=== PATIENT | male | born 1935 | race Caucasian/White ===

== ENCOUNTER 2023-12-02 18:44 | Emergency (ER) | payer MEDICARE, SELFPAY ==
[2023-12-02] VITALS (10 sets, daily range): BP systolic 101–135; BP diastolic 55–67; PULSE 66–94; RESP 19–26; TEMP 36.7; O2SAT 92–96; BMI 27.2
--- NOTE | 2023-12-02 18:49 | XRR_ITS ---
PROCEDURE INFORMATION: Exam: XR Chest Exam date and time: 12/02/2023 8:00 PM Age: 88 years old Clinical indication: Dyspnea; Additional info: Shortness of breath TECHNIQUE: Imaging protocol: Radiologic exam of the chest. Views: 1 view. COMPARISON: No relevant prior studies available. FINDINGS: Lungs: No focal consolidation. Mid to lower left lung hazy opacities compatible with atelectasis or developing infection in the proper clinical setting. Pleural spaces: No evidence of pneumothorax. No evidence of pleural effusion. Heart/Mediastinum: Cardiomediastinal silhouette is within normal limits. There is colonic interposition in the right upper quadrant. There appears to be gaseous distension of the stomach. Bones/joints: No evidence of acute osseous abnormality. XR/XR chest 1V portable [id number] IMPRESSION: 1. Mid to lower left lung hazy opacities compatible with atelectasis or developing infection in the proper clinical setting.
--- NOTE | 2023-12-02 18:49 | ECG_ITS ---
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 Measurements Intervals [place] Rate: 89 P: 63 [place]: 158 QRS: 93 QRSD: 133 T: 57 QT: 411 QTc: 503 Interpretive Statements SINUS RHYTHM RIGHT BUNDLE BRANCH BLOCK [120+ ms QRS DURATION, UPRIGHT V1, 40+ ms S IN I/aVL/V4/V5/V6] No previous ECG available for comparison Electronically Signed On 12-03-2023 00:58:00 CDT by Cher Leal M.D. [email or web address]
[2023-12-02 19:04] LABS: Basophils % 0.2 %; Eosinophils # 0.3 10^3/uL (0.0-0.8); Eosinophils % 7.7 %; Hematocrit 31.1 % (37-53); Lymphocytes # 0.3 10^3/uL (0.8-4.8); Mean Corpuscular HGB Conc 33.1 g/dL (30-55); Mean Corpuscular Hemoglobin 34.6 pg (27-33); Mean Corpuscular Volume 104.4 fl (82-101); Mean Platelet Volume 9.5 fL (7.4-10.4); Monocytes # 0.5 10^3/uL (0.2-0.9); Monocytes % 10.1 %; Neutrophils # 3.31 10^3/uL (1.8-7.7); Neutrophils % 74.5 %; Nucleated Red Blood Cells % 0 %; Platelet Count 176 10^3/cmm (157-399); Red Blood Count 2.98 10^6/uL (3.85-5.65); Red Cell Distribution Width 16.1 % (12.1-15.1); White Blood Count 4.44 10^3/uL (3.29-11.43)
--- NOTE | 2023-12-02 19:05 | ED_ITS ---
HPI - SOB/Dyspnea 2 General: Chief Complaint: Shortness of Breath/Dyspnea Stated Complaint: AMS Time Seen by Provider: 12/02/23 18:46 History of Present Illness: HPI Narrative: 88-year-old man who presents to the [facility] with decreased responsiveness. Apparently has some dementia but normally can speak and knows his name. Today he is less responsive. He does tell me when he arrives in the emergency room that he needs to urinate. EMS reports that he had audible wheezing and so they gave him an updraft and 80 of Lasix as he is on Lasix and has lower extremity swelling. Related Data Previous Rx's Medication Instructions Recorded dexamethasone 6 mg tablet 6 mg PO DAILY 5 days #5 tabs 12/02/23 doxycycline monohydrate 100 mg 100 mg PO BID 10 days #20 caps 12/02/23 capsule Allergies Allergy/AdvReac Type Severity Reaction Status Date / Time No Known Allergies Allergy Verified 12/02/23 18:55 Review of Systems 2 Narrative: Constitutional symptoms: Negative except as documented in HPI. Skin symptoms: Negative except as documented in HPI. Eye symptoms: Negative except as documented in HPI. ENMT symptoms: Negative except as documented in HPI. Respiratory symptoms: Negative except as documented in HPI. Cardiovascular symptoms: Negative except as documented in HPI. Gastrointestinal symptoms: Negative except as documented in HPI. Genitourinary symptoms: Negative except as documented in HPI. Musculoskeletal symptoms: Negative except as documented in HPI. Neurologic symptoms: Negative except as documented in HPI. Psychiatric symptoms: Negative except as documented in HPI. Endocrine symptoms: Negative except as documented in HPI. Physical Exam 2 Narrative: EXAM NARRATIVE: General: Alert, no acute distress. Skin: Warm, dry. Patient has some cellulitis developing over edema in his lower extremities. Head: Normocephalic, atraumatic. Neck: Supple, trachea midline. Eye: Extraocular movements are intact. Ears, nose, mouth and throat: mucosa moist. Cardiovascular: Regular, Normal peripheral perfusion. Respiratory: Lung sounds are coarse. Initially is mildly tachypneic. Some wheeze.. Gastrointestinal: Soft, Nontender, Non distended Musculoskeletal: Normal ROM, no deformity. Neurological: Alert No focal neurological deficit observed. Psychiatric: Cooperative Course 2 Vital Signs: Vital signs: Vital Signs Temperature 98.0 F 12/02/23 18:46 Pulse Rate 93 12/02/23 20:09 Respiratory Rate 19 H 12/02/23 19:52 Blood Pressure 124/61 12/02/23 20:09 Pulse Oximetry 93 12/02/23 20:09 Oxygen Delivery Me thod Room Air 12/02/23 20:09 MDM - SOB/Dyspnea Medical Decision Making Differential diagnosis for patient with shortness of breath includes but is not limited to and based on the above HPI, review of systems and physical exam: Pneumonia. Bronchitis. Asthma or COPD with acute exacerbation. Acute coronary syndrome / MD. Pulmonary embolism. Anxiety. Congestive heart failure. Viral infections including influenza and Covid-19. Atrial fibrillation. Anxiety. Pleural effusion. Pneumothorax. Orders placed to evaluate differential diagnosis based on the above differential, HPI and physical exam Lab Review: Laboratory results were reviewed and interpreted by myself the emergency room physician. No leukocytosis. Hemoglobin is fairly normal at 10.3. No renal failure. proBNP is not elevated. Lactate is not elevated. Serial troponins are unchanged at 50. Chest x-ray: Some hazy opacities in the left lung. Could be a developing infection. Treating the patient with doxycycline for the cellulitis and will treat a pneumonia as well. This was reviewed and interpreted by myself the emergency room physician. I also reviewed the radiology report. I reviewed the patient's medical record. Reexamination: Patient is more alert at discharge. He is answering questions appropriately. Knows his name and his birthday. Breathing is improved. No longer tachypneic. Assessment and plan: Lower extremity cellulitis Possible pneumonia Edema COPD exacerbation ?Patient received steroids and Lasix on the ambulance. IV doxycycline here. This should cover cellulitis and a possible pneumonia. Return to the emergency room if worsening. - Discharged home - Discussed findings and plan with patient. Answered any questions. - All laboratory values were reviewed and interpreted personally by myself, the ER physician - All imaging was reviewed and interpreted personally by myself, the ER physician. - Evaluation and treatment of this problem were appropriate in the emergency setting Lab Data 12/02/23 18:20 12/02/23 18:20 Labs/Radiology: Radiology Impressions Chest X-Ray 12/02/23 18:49 IMPRESSION: 1. Mid to lower left lung hazy opacities compatible with atelectasis or developing infection in the proper clinical setting. Laboratory Results WBC 4.44 10^3/uL (3.29-11.43) 12/02/23 18:20 RBC 2.98 10^6/uL (3.85-5.65) L 12/02/23 18:20 Hgb 10.30 g/dL (11.27-16.99) L 12/02/23 18:20 Hct 31.1 % (37-53) L 12/02/23 18:20 MCV 104.4 fl (82-101) H 12/02/23 18:20 MCH 34.6 pg (27-33) H 12/02/23 18:20 MCHC 33.1 g/dL (30-55) 12/02/23 18:20 RDW 16.1 % (12.1-15.1) H 12/02/23 18:20 Plt Count 176 10^3/cmm (157-399) 12/02/23 18:20 MPV 9.5 fL (7.4-10.4) 12/02/23 18:20 Neut % (Auto) 74.5 % 12/02/23 18:20 Lymph % (Auto) 7.0 % 12/02/23 18:20 [place] % (Auto) 10.1 % 12/02/23 18:20 Eos % (Auto) 7.7 % 12/02/23 18:20 Baso % (Auto) 0.2 % 12/02/23 18:20 Neut # (Auto) 3.31 10^3/uL (1.8-7.7) 12/02/23 18:20 Lymph # (Auto) 0.3 10^3/uL (0.8-4.8) L 12/02/23 18:20 [place] # (Auto) 0.5 10^3/uL (0.2-0.9) 12/02/23 18:20 Eos # (Auto) 0.3 10^3/uL (0.0-0.8) 12/02/23 18:20 Baso # (Auto) 0.0 10^3/uL (0.0-0.1) 12/02/23 18:20 Nucleated RBC % (auto) 0 % 12/02/23 18:20 Nucleated RBCs # 0.0 /100WBC 12/02/23 18:20 Sodium 137 mmol/L (136-145) 12/02/23 18:20 Potassium 4.3 mmol/L (3.5-5.1) 12/02/23 18:20 Chloride 102 mmol/L (98-107) 12/02/23 18:20 Carbon Dioxide 28 mmol/L (22-29) 12/02/23 18:20 Anion Gap 11.3 (5-19) 12/02/23 18:20 BUN 20 mg/dL (8-23) 12/02/23 18:20 Creatinine 0.8 mg/dL (0.7-1.2) 12/02/23 18:20 GFR Calculation Not Reportable 12/02/23 18:20 Glucose 105 mg/dL (65-115) 12/02/23 18:20 Calculated Osmolality 287 mOsm/kg (285-295) 12/02/23 18:20 Lactic Acid 1.2 mmol/L (0.5-2.2) 12/02/23 18:20 Calcium 7.7 mg/dL (8.5-10.5) L 12/02/23 18:20 Total Bilirubin 0.5 mg/dL (0.15-1.2) 12/02/23 18:20 AST 27 U/L (0-40) 12/02/23 18:20 ALT 20 U/L (0-41) 12/02/23 18:20 Alkaline Phosphatase 111 U/L (40-130) 12/02/23 18:20 Troponin T Baseline 51 ng/L (0-15) H 12/02/23 18:20 Troponin T 120 Minute 56.15 ng/L (0-15) H 12/02/23 20:20 Delta Troponin T 5.15 ABS# (0-10) 12/02/23 20:20 NT-Pro-B Natriuret Pep 341 pg/mL (0-450) 12/02/23 18:20 Total Protein 5.4 g/dL (6.6-8.7) L 12/02/23 18:20 Albumin 3.0 g/dL (3.5-5.2) L 12/02/23 18:20 Globulin 2.4 g/dL (1.3-4.6) 12/02/23 18:20 Urine Color Dark yellow (Yellow) A 12/02/23 19:05 Urine Appearance Clear (CLEAR) 12/02/23 19:05 Urine pH 5.5 (5-7) 12/02/23 19:05 Ur Specific [place] 1.025 (1.005-1.030) 12/02/23 19:05 Urine Protein Negative (Negative) 12/02/23 19:05 Urine Glucose (UA) Negative (Normal) 12/02/23 19:05 Urine Ketones Trace (Negative) 12/02/23 19:05 Urine Blood Negative (Negative) 12/02/23 19:05 Urine Nitrate Negative (Negative) 12/02/23 19:05 Urine Bilirubin Negative (Negative) 12/02/23 19:05 Urine Urobilinogen 4.0 mg/dL (Negative) H 12/02/23 19:05 Ur Leukocyte Esterase Trace (Negative) A 12/02/23 19:05 Urine RBC 3-5 /hpf (0-2) 12/02/23 19:05 Urine WBC 0-5 /hpf (0-5) 12/02/23 19:05 Ur Squamous Epith Cells 0-5 /hpf (0-5) 12/02/23 19:05 Amorphous Sediment Not Reportable 12/02/23 19:05 Urine Bacteria None seen /hpf (NONE) 12/02/23 19:05 Hyaline Casts 2.46 /lpf 12/02/23 19:05 Coronavirus (PCR) Negative (Negative) 12/02/23 19:09 Influenza A (PCR) Negative (Negative) 12/02/23 19:09 Influenza Type B (PCR) Negative (Negative) 12/02/23 19:09 RSV (PCR) Negative (Negative) 12/02/23 19:09 All radiology interpretation(s) finalized by discharge Discharge Plan Discharge Patient Disposition: Home Clinical Impression: Cellulitis, Congestive heart failure (CHF), Metabolic encephalopathy, COPD with acute exacerbation Condition: Stable Prescriptions: New dexamethasone 6 mg tablet 6 mg PO DAILY 5 Days Qty: 5 0RF doxycycline monohydrate 100 mg capsule 100 mg PO BID 10 Days Qty: 20 0RF Discharge Orders: Discharge ED (Routine); Ordered 12/02/23 Ordered By: Anna Marie Banuelos Discharge Diet: Usual diet Discharge Activity: Increase activity as tolerated Patient Instructions: Cellulitis (ED), COPD (Chronic Obstructive Pulmonary Disease) (ED) Activity Restrictions/Additional Instructions: Thank you for choosing [facility] for your healthcare needs today. Please realize this is an emergency room and that we are providing you with a medical screening exam and this may not be complete and all inclusive of all the testing and or work up that you may need to determine your ailment or severity of your illness. You have been screened and evaluated and felt safe for discharge. Health conditions do change or evolve sometimes and as such it is important that you follow up with your Primary Doctor to be re checked, 3-5 days is a general good time frame for follow up. You are always welcome to return to the ED for re assessment if your symptoms are worsening or you have new concerns Coding Level of Care Code ED [employer]r for Lillian Mariano
[2023-12-02 19:14] LABS: Bilirubin Urine Negative (Negative); Blood Urine Negative (Negative); Glucose Urine UA Negative (Normal); Ketones Urine Trace (Negative); Leukocyte Esterase Urine Trace (Negative); Nitrate Urine Negative (Negative); Protein Urine Negative (Negative); Specific Gravity, Urine 1.025 (1.005-1.030); Urine Appearance Clear (CLEAR); Urine Color Dark Yellow (Yellow); pH Urine 5.5 (5-7)
[2023-12-02 19:19] LABS: Bacteria Urine None Seen /hpf; Hyaline Casts Urine 2.46 /lpf; Squamous Epithelial Cell Urine 0-5 /hpf (0-5); WBC Urine 0-5 /hpf (0-5)
[2023-12-02 19:35] LABS: Lactic Sepsis W/Reflex 1.2 mmol/L (0.5-2.2)
[2023-12-02 19:37] LABS: Troponin(5th) Baseline 51 ng/L (0-15)
[2023-12-02 19:42] LABS: Add Urine Culture? No
[2023-12-02 19:44] LABS: Alanine Aminotransferase 20 U/L (0-41); Alkaline Phosphatase 111 U/L (40-130); Aspartate Amino Transferase 27 U/L (0-40); Blood Urea Nitrogen 20 mg/dL (8-23); Calcium 7.7 mg/dL (8.5-10.5); Carbon Dioxide 28 mmol/L (22-29); Chloride 102 mmol/L (98-107); Creatinine Clr Calc Pharmacy 72.0222; Globulin 2.4 g/dL (1.3-4.6); Glucose 105 mg/dL (65-115); NT Pro B Type Natriuretic Pept 341 pg/mL (0-450); Osmolality Calculated 287 mOsm/kg (285-295); Sodium 137 mmol/L (136-145); Total Bilirubin 0.5 mg/dL (0.15-1.2); Total Protein 5.4 g/dL (6.6-8.7)
[2023-12-02 19:54] LABS: Anion Gap 11.3 (5-19); Potassium 4.3 mmol/L (3.5-5.1)
[2023-12-02 20:08] LABS: Covid PCR NEGATIVE (Negative); Influenza A NEGATIVE (Negative); Influenza B NEGATIVE (Negative); Respiratory Syncytial Virus Ce NEGATIVE (Negative)
[2023-12-02 20:40] LABS: Troponin 5 2HR 56.15 ng/L (0-15); Troponin 5 2HR Delta 5.15 ABS# (0-10)
[2023-12-02] MEDS: cefTRIAXone 1,000 MG in water for injection-sterile 2.1 ML 2.1 MG IM (22:36)
== END 2023-12-02 21:52 | disposition home or self-care (01) ==
PROVIDERS: Emergency Provider Emergency Medicine; PCP Internal Medicine
DX: L03.116 Cellulitis of left lower limb (principal); L03.115 Cellulitis of right lower limb; J44.1 Chronic obstructive pulmonary disease with (acute) exacerbation; G93.41 Metabolic encephalopathy; I50.9 Heart failure, unspecified; Z11.52 Encounter for screening for COVID-19; F03.90 Unspecified dementia, unspecified severity, without behavioral disturbance, psychotic disturbance, mood disturbance, and anxiety
CPT/HCPCS: 0241U; 36415; 71045; 80053; 81001; 83605; 83880; 84484; 85025; 87040; 93005; 96372; 99285; J0696

== ENCOUNTER 2024-07-03 17:40 | Inpatient (IN) | payer MEDICARE, BC, SELFPAY ==
--- NOTE | 2024-07-03 17:40 | ECG_ITS ---
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 Measurements Intervals [place] Rate: 101 P: 6 NM: 157 QRS: -52 QRSD: 148 T: 21 QT: 349 QTc: 452 Interpretive Statements SINUS TACHYCARDIA RIGHT BUNDLE BRANCH BLOCK [120+ ms QRS DURATION, UPRIGHT V1, 40+ ms S IN I/aVL/V4/V5/V6] L Compared to ECG 12/02/2023 18:57:19 Sinus rhythm no longer present Electronically Signed On 07-03-2024 19:52:27 CDT by Ronnie Wesley M.D. [id number] [id number]
--- NOTE | 2024-07-03 17:40 | XRR_ITS ---
PROCEDURE INFORMATION: Exam: XR Chest Exam date and time: 07/03/2024 6:21 PM Age: 89 years old Clinical indication: Shortness of breath; EMS arrival from longterm for SOB and hypoxia. History of copd and chf. TECHNIQUE: Imaging protocol: Radiologic exam of the chest. Views: 1 view. COMPARISON: CR XR chest 1V portable [id number] 12/02/2023 8:00 PM FINDINGS: Lungs: Interstitial and patchy airspace opacities greater in the right mid and lower lobe. Pleural spaces: No sizable pneumothorax. No sizable pleural effusion. Heart/Mediastinum: Unremarkable. No cardiomegaly. Diaphragm: Elevation of the hemidiaphragms versus patient positioning. Bones/joints: Unremarkable. Gastrointestinal tract: Gaseous distension of bowel loops. XR/XR chest 1V portable [id number] IMPRESSION: As above.
[2024-07-03 17:48] VITALS: BP 128/65; PULSE 99; RESP 24; TEMP 36.8; O2SAT 95; BMI 14.3
[2024-07-03 18:14] LABS: Basophils % 0.2 %; Hematocrit 36.2 % (37-53); Lymphocytes # 0.2 10^3/uL (0.8-4.8); Lymphocytes % 2.2 %; Mean Corpuscular HGB Conc 31.5 g/dL (30-55); Mean Corpuscular Hemoglobin 33.9 pg (27-33); Mean Corpuscular Volume 107.7 fl (82-101); Mean Platelet Volume 10.3 fL (7.4-10.4); Monocytes # 0.6 10^3/uL (0.2-0.9); Monocytes % 6.1 %; Neutrophils % 91.1 %; Nucleated Red Blood Cells % 0 %; Platelet Count 166 10^3/cmm (157-399); Red Blood Count 3.36 10^6/uL (3.85-5.65); Red Cell Distribution Width 15.5 % (12.1-15.1); White Blood Count 9.22 10^3/uL (3.29-11.43)
[2024-07-03 18:25] LABS: ABG PCO2 42.1 mmHg (35-45); ABG PH Result 7.38 (7.35-7.45); Arterial Blood Gas Hematocrit 35.8 % (42-52); Base Excess ABG -0.7 mmol/L (-2.0-2.0); Blood Gas Allen Test Pos; Blood Gas Operator Identificat WALCI; Blood Gas Sample Site Radial, right; Blood Gas Sample Type Arterial; HCO3 ABG 24.6 mmol/L (22-26); Oxygen Device NRB
[2024-07-03 18:31] VITALS: PULSE 92; RESP 20; O2SAT 99
[2024-07-03 18:42] LABS: Alanine Aminotransferase 20 U/L (0-41); Albumin Level 3.1 g/dL (3.5-5.2); Alkaline Phosphatase 104 U/L (40-130); Anion Gap 19.8 (5-19); Aspartate Amino Transferase 18 U/L (0-40); Blood Urea Nitrogen 25 mg/dL (8-23); Calcium 8.4 mg/dL (8.5-10.5); Carbon Dioxide 20 mmol/L (22-29); Chloride 103 mmol/L (98-107); Creatinine Clr Calc Pharmacy 40.9491; Globulin 3.4 g/dL (1.3-4.6); Glucose 250 mg/dL (65-115); NT Pro B Type Natriuretic Pept 1897 pg/mL (0-450); Osmolality Calculated 303 mOsm/kg (285-295); Sodium 140 mmol/L (136-145); Total Bilirubin 0.4 mg/dL (0.15-1.2); Total Protein 6.5 g/dL (6.6-8.7)
[2024-07-03 18:45] LABS: Potassium 2.8 mmol/L (3.5-5.1)
[2024-07-03 18:48] VITALS: BP 144/77; PULSE 96; RESP 19; O2SAT 95
[2024-07-03] MEDS: piperacillin-tazobactam 4.5 GM in sodium chloride 0.9% (plus) 50 ML IV (18:50)
[2024-07-03 19:01] LABS: Lactic Sepsis W/Reflex 3.6 mmol/L (0.5-2.2); Reflex Lactate Order REFLEX LACTIC ORDERD
[2024-07-03] MEDS: lidocaine 1% 5 ML in potassium chloride premix 100 ML 26.25 ML IV (19:14)
[2024-07-03 19:17] VITALS: BP 160/126; PULSE 93; RESP 20; O2SAT 99
[2024-07-03 19:32] LABS: Influenza A NEGATIVE (Negative); Influenza B NEGATIVE (Negative); Respiratory Syncytial Virus Ce NEGATIVE (Negative); SARS-CoV-2 PCR NEGATIVE (Negative)
--- NOTE | 2024-07-03 19:34 | W.ED.SOB ---
HPI - SOB/Dyspnea General: Chief Complaint: ER Hold Stated Complaint: sob Time Seen by Provider: 07/03/24 18:01 History of Present Illness: HPI Narrative: 89-year-old male patient presenting from the longterm. He has been short of breath. He is confused. Oxygen saturations were low there. No history of fever. He is unable to give much else in terms of history. Related Data Previous Rx's ?Medication ?Instructions ?Recorded azithromycin 250 mg tablet See Rx Instructions PO .COMPLEX #6 12/02/23 (Zithromax Z-Alfa) tabs Allergies Allergy/AdvReac Type Severity Reaction Status Date / Time No Known Allergies Allergy Verified 12/02/23 18:55 [facility] ED PFSH: Medical History (Updated 07/04/24 @ 02:21 by Rufina Ureña MD) BPH (benign prostatic hyperplasia) Physical Exam Const: EXAM LIMITATIONS: altered mental status GENERAL APPEARANCE: cooperative, in distress, ill appearing and frail appearing ORIENTATION/CONSCIOUSNESS: Yes awake and Yes oriented to person HENMT: COMMON NORMALS: normocephalic and atraumatic HEAD & SCALP: normocephalic and atraumatic FACE & SINUS: normal facial exam NOSE: Normal nares present Eye: COMMON NORMALS: Equal, round and reactive pupils present and EOMs intact bilaterally PUPIL: Yes Equal, round and reactive pupils present Chest: CHEST: Yes Symmetrical chest wall rise Resp: EFFORT & INSPECTION: Yes decreased respiratory effort and Yes labored AUSCULTATION: diminished lung sounds Cardio: COMMON NORMALS: regular rate and regular rhythm RATE: regular rate RHYTHM: regular rhythm GI: INSPECTION: Yes abdominal distension PALPATION: No Guarding due to palpation present (GI) Extremity: COMMON NORMALS: no pedal edema Neuro: SENSORIUM/ORIENTATION: Yes oriented to person Course Vital Signs: Vital signs: Vital Signs Temperature 98.3 F 07/04/24 04:19 Pulse Rate 90 07/04/24 05:17 Respiratory Rate 18 07/04/24 05:17 Blood Pressure 124/54 07/04/24 05:17 Pulse Oximetry 92 07/04/24 05:17 Oxygen Delivery Me thod Nasal Cannula 07/04/24 05:17 Oxygen Flow Rate 4 07/04/24 05:17 Fraction of Inspir ed Oxygen 40 07/03/24 18:31 MDM - SOB/Dyspnea Medical Decision Making Patient quite hypoxic on initial evaluation. He is placed on BiPAP. Saturations are improved. He is afebrile. He is not hypotensive. He is not tachycardic. Lactic acid is 3.6 however. White blood cell count is 9.2. Potassium is 2.8, and is being repleted. BNP is somewhat elevated. Creatinine is 0.7. As he is normotensive and nontachycardic, he is not given a subsix bolus for shock. Antibiotics are started after blood cultures. Chest x-ray shows bilateral pulmonary infiltrates. Patient is a DNR. Hospitalist is aware. He will be admitted. Lab Data 07/04/24 01:19 07/04/24 01:19 Labs/Radiology: Radiology Impressions Chest X-Ray 07/03/24 17:40 IMPRESSION: As above. Chest/Abdomen/Pelvis CT 07/03/24 23:00 IMPRESSION: Large right pleural effusion without definite loculation. There is extensive bilateral airspace disease compatible with pneumonia. IMPRESSION: 1. 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 No current findings of bowel ischemia or infarction. 2. There is a sliver of gas in the left lateral abdominal wall musculature, etiology and significance unclear. No other ectopic gas is seen. COMMENTS: Consistent with the [place] [employer]'s Incidental Findings Committee white paper (J Am Tran Radiol 2018): Any incidental renal lesion less than 1 cm or classified as too small to characterize, or any incidental cystic renal lesion characterized as simple-appearing, is likely benign. No follow-up imaging is recommended for these lesions per consensus recommendations based on imaging criteria. ADDENDUM: 07/04/24 0051 THIS REPORT CONTAINS FINDINGS THAT MAY BE CRITICAL TO PATIENT CARE. The findings were verbally communicated via telephone conference with AMANDA WILSON at 12:49 AM CDT on 07/04/2024. The findings were acknowledged and understood. Laboratory Results WBC 9.22 10^3/uL (3.29-11.43) 07/03/24 18:08 RBC 3.36 10^6/uL (3.85-5.65) L 07/03/24 18:08 Hgb 11.40 g/dL (11.27-16.99) 07/03/24 18:08 Hct 36.2 % (37-53) L 07/03/24 18:08 MCV 107.7 fl (82-101) H 07/03/24 18:08 MCH 33.9 pg (27-33) H 07/03/24 18:08 MCHC 31.5 g/dL (30-55) 07/03/24 18:08 RDW 15.5 % (12.1-15.1) H 07/03/24 18:08 Plt Count 166 10^3/cmm (157-399) 07/03/24 18:08 MPV 10.3 fL (7.4-10.4) 07/03/24 18:08 Neut % (Auto) 91.1 % 07/03/24 18:08 Lymph % (Auto) 2.2 % 07/03/24 18:08 [place] % (Auto) 6.1 % 07/03/24 18:08 Eos % (Auto) 0.0 % 07/03/24 18:08 Baso % (Auto) 0.2 % 07/03/24 18:08 Neut # (Auto) 8.40 10^3/uL (1.8-7.7) H 07/03/24 18:08 Lymph # (Auto) 0.2 10^3/uL (0.8-4.8) L 07/03/24 18:08 [place] # (Auto) 0.6 10^3/uL (0.2-0.9) 07/03/24 18:08 Eos # (Auto) 0.0 10^3/uL (0.0-0.8) 07/03/24 18:08 Baso # (Auto) 0.0 10^3/uL (0.0-0.1) 07/03/24 18:08 Nucleated RBC % (auto) 0 % 07/03/24 18:08 Nucleated RBCs # 0.0 /100WBC 07/03/24 18:08 PT 15.10 SECONDS (12.1-14.9) H 07/03/24 18:08 INR 1.11 (0.8-1.2) 07/03/24 18:08 APTT 30.1 SECONDS (23.9-36.7) 07/03/24 18:08 Specimen Type Arterial 07/03/24 18:14 Sample Site Radial, right 07/03/24 18:14 ABG pH 7.38 (7.35-7.45) 07/03/24 18:14 ABG pCO2 42.1 mmHg (35-45) 07/03/24 18:14 ABG pO2 83.0 mmHg (80.0-100.0) 07/03/24 18:14 ABG HCO3 24.6 mmol/L (22-26) 07/03/24 18:14 ABG Base Excess -0.7 mmol/L (-2.0-2.0) 07/03/24 18:14 Fer Test Pos 07/03/24 18:14 Hematocrit 35.8 % (42-52) L 07/03/24 18:14 O2 Delivery Device Nrb 07/03/24 18:14 O2 Liters/Min 15.0 % 07/03/24 18:14 Diver Pumper ID [place] 07/03/24 18:14 Sodium 140 mmol/L (136-145) 07/03/24 18:08 Potassium 2.8 mmol/L (3.5-5.1) L* 07/03/24 18:08 Chloride 103 mmol/L (98-107) 07/03/24 18:08 Carbon Dioxide 20 mmol/L (22-29) L 07/03/24 18:08 Anion Gap 19.8 (5-19) H 07/03/24 18:08 BUN 25 mg/dL (8-23) H 07/03/24 18:08 Creatinine 0.7 mg/dL (0.7-1.2) 07/03/24 18:08 GFR Calculation Not Reportable 07/03/24 18:08 Glucose 250 mg/dL (65-115) H 07/03/24 18:08 Estimat Average Glucose 105 07/03/24 18:08 Hemoglobin A1c 5.3 % (4.0-6.0) 07/03/24 18:08 Calculated Osmolality 303 mOsm/kg (285-295) H 07/03/24 18:08 Lactic Acid 3.6 mmol/L (0.5-2.2) H 07/03/24 18:08 Calcium 8.4 mg/dL (8.5-10.5) L 07/03/24 18:08 Phosphorus 2.3 mg/dL (2.5-4.5) L 07/03/24 18:08 Magnesium 2.4 mg/dL (1.7-2.3) H 07/03/24 18:08 Total Bilirubin 0.4 mg/dL (0.15-1.2) 07/03/24 18:08 AST 18 U/L (0-40) 07/03/24 18:08 ALT 20 U/L (0-41) 07/03/24 18:08 Alkaline Phosphatase 104 U/L (40-130) 07/03/24 18:08 NT-Pro-B Natriuret Pep 1897 pg/mL (0-450) H 07/03/24 18:08 Total Protein 6.5 g/dL (6.6-8.7) L 07/03/24 18:08 Albumin 3.1 g/dL (3.5-5.2) L 07/03/24 18:08 Globulin 3.4 g/dL (1.3-4.6) 07/03/24 18:08 Influenza A (PCR) Negative (Negative) 07/03/24 18:40 Influenza Type B (PCR) Negative (Negative) 07/03/24 18:40 RSV (PCR) Negative (Negative) 07/03/24 18:40 SARS-CoV-2 (PCR) Negative (Negative) 07/03/24 18:40 All radiology interpretation(s) finalized by discharge Critical Care Time Critical Care Time: Critical Care Time: Yes Total Critical Care Time: 35 Attestation: This case had a high probability of a clinically significant, sudden, or life threatening deterioration of this patient's condition which required my full and direct attention, intervention and personal management. Time is independent of any procedures performed. 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
[2024-07-03 19:52] VITALS: BP 133/64; PULSE 87; RESP 18; O2SAT 97
--- NOTE | 2024-07-03 20:28 | PM.HP ---
Providers/Chief Complaint Admitting Physician: Lorie Wilson MD Primary Care Provider: Omkar Perez DO Chief Complaint: sob History of Present Illness Carlos Masterson is a 89 yo man w/ COPD not on supplemental O2, DM2, HTN, Hypothyroidism, and Liver cirrhosis and BPH, who was brought from [facility] to the ED via EMS on 07/03/2024 with concerns of progresive dyspnea, respiratory distress, hypoxemia, and confusion. When I saw the patient, he was on BiPAP and confused, to hx was obtained by calling the retirement. I spoke with Qi the nurse at the half-way, who tells me that starting around 5am on 07/02/2024, the patient was given Tylenol. Shortly afterwards, he started coughing. He is on a pureed diet a the half-way. By Thursday evening, he was coughing and had a hoarse voice. His O2 sats were in the 80s. Neb treatment was administered at 20:27, and it brought his O2 sat to 91%. About an hr later, it was 83% on RA, so he was placed on 2.5L NC, which improved him to 93%. He was given cough syrup, which helped for the rest of the night and his O2 sat remained at 93% for the rest of the ship. He got nebulizer treatment at 4am this morning. During the day, his speech became unintelligible and he was unable to follow commands. [place], At baseline, he normally uses his wheelchair, and with his feet and grabbing the side rails, he is able to propel himself along from unit to unit, but today, he was unable to do that. A stat CXR was done and based on the results along w/ his clinical presentation, including labored breathing, he was sent to the ED. In the ED, ayanna was tachypneic and hypoxemic such that he was placed on non-rebreather, then eventually on BiPAP. His Influenza A/B, His CXR showed interstitial and patchy airspace opacities in the R. mid and lower lobe as well as gaseous distension of bowel loops. Review of Systems General: Reports: ROS unobtainable due to medical condition (patient is on BiPAP) and ROS unobtainable due to mental status (confused) Medications/Allergies Home Medications ?Medication ?Instructions ?Recorded ?Confirmed ?Last Taken ?Type azithromycin 250 mg tablet See Rx Instructions PO .COMPLEX #6 12/02/23 Unknown Rx (Zithromax Z-Alfa) tabs Allergies Allergy/AdvReac Type Severity Reaction Status Date / Time No Known Allergies Allergy Verified 12/02/23 18:55 PFSH Acute PFSH: Medical History (Updated 07/04/24 @ 00:10 by Lorie Wilson MD) BPH (benign prostatic hyperplasia) Vitals/I&O/Wt Last Vital Signs Temp 98.3 F 07/03/24 17:48 Pulse 87 07/03/24 19:52 Resp 18 07/03/24 19:52 BP 133/64 07/03/24 19:52 Pulse Ox 97 07/03/24 19:52 O2 Del Method BiPAP 07/03/24 19:52 O2 Flow Rate 4 07/03/24 17:48 FiO2 40 07/03/24 18:31 07/03/24 07/03/24 07/03/24 06:59 14:59 22:59 Intake Total 50 / 50 Balance 50 / 50 Weight last 48 hrs Weight 45.359 kg Physical Exam Narrative: Physical exam is limited by the patient's BiPAP Const: GENERAL APPEARANCE: cooperative and comfortable NUTRITIONAL APPEARANCE: cachectic (bitemporal wasting) ORIENTATION/CONSCIOUSNESS: Yes awake and Yes confused; not oriented to person, not oriented to place and not oriented to time HENMT: HEAD & SCALP: normocephalic and atraumatic NOSE: Normal external nose present EXTERNAL EAR: Yes external ears normal MOUTH: Normal oral and palatal mucosa present THROAT: posterior oropharynx normal Eye: CONJUNCTIVA: Yes conjunctivae normal PUPIL: Yes Equal, round and reactive pupils present EOM: No EOM abnormal Neck/C-Spine: GENERAL: Yes normal visual inspection and Yes trachea midline CAROTIDS: No bruit Lymph: OTHER: no cervical or supraclavicular LAD Resp: OTHER: crackles throughout L. lung field, diminished breath sounds in R. lung field. Cardio: OTHER: RRR, no m/r/g or clicks. GI: OTHER: BS+, NT, ND, no rebound tenderness, no rigidity, no guarding, no hepatosplenomegaly. Extremity: NARRATIVE EXTREMITY EXAM: 2+ pitting edema to the mid tibia bilaterally Neuro: LINK COMA SCALE: document GCS findings [place] coma scale eye opening: Spontaneous Link coma scale verbal response: Confused Link coma scale motor response: Obey commands [place] coma scale total score: 14 Psych: OTHER: Unable to assess given mental status Skin: OTHER: Excoriations on the patient's skin. Data 07/03/24 18:08 07/03/24 18:08 Micro: Microbiology 07/03/24 18:45 Blood Culture - Preliminary Blood SPECIMEN COLLECTED 07/03/24 18:49 Blood Culture - Preliminary Blood SPECIMEN COLLECTED A&P Assessment and plan (1) Acute hypoxic respiratory failure: (2) Aspiration pneumonia: (3) Hypokalemia: (4) Severe protein-calorie malnutrition: (5) Hypothyroidism: (6) Oropharyngeal dysphagia: (7) Acute metabolic encephalopathy: Plan Carlos Masterson is a 89 yo man w/ COPD not on supplemental O2, DM2, HTN, Hypothyroidism, and Liver cirrhosis and BPH, who was brought from [facility] to the ED via EMS on 07/03/2024 with concerns of progresive dyspnea, respiratory distress, hypoxemia, and confusion. In the ED, ayanna was tachypneic and hypoxemic such that he was placed on non-rebreather, then eventually on BiPAP. His Influenza A/B, His CXR showed interstitial and patchy airspace opacities in the R. mid and lower lobe as well as gaseous distension of bowel loops. #Acute Metabolic Encephalopathy: #Acute Hypoxic Resp failure: On BiPAP. Wean as tolerated. NPO for now. #Community Acquired Pneumonia vs Aspiration pneumonia: - F/u BCx. - Continue Zosyn. Start Azithromycin - He will need a swallow study. - F/u CT chest/abd/pelvis - Ordered 1L NS at 500cc/hr. #Acute COPD Exacerbation: - Duonebs, abx, PPI, Steroids ordered #Hypokalemia - s/p 4omeq IV Kcl ordered in the ED. - 1L NS + 40mEQK at 250cc/hr ordered #At risk of REESE: #DM2 - F/u A1c. -Insulin glargine BID w/ low dose SSI w/ meals and high dose SSI at bedtime ordered. #Hypothyroidism - F/u TSH #Abdominal distension - hx of Liver Cirrhosis on his chart - F/u CT chest/abd/pelvis - Monitor liver fxn and pt/ptt #Macrocytic anemia - Multiple possibilities including vitamin deficiencies vs cirrhosis if he has a liver etiology or due myelodysplastic syndrome - f/u iron studies, b12, folate, tsh, or Peripheral smear #Oropharyngeal Dysphagia - Will need swallow study ordered later. #Severe Protein Calorie Malnutrition - Consulted [facility] for assessment and recs. #b/l LE swelling. -Ordered venous duplex US. #Code status: DNR/DNI per outside hospital document sent from half-way. I called the phone number for the DPOA, Cris Tristansantos, and did not get a response. DVT ppx: Lovenox. GI ppx: PPI PDMP PDMP Reviewed: Not Reviewed Attestations Medical Necessity Statement*: The patient needs to be hospitalized for >2 midnights for acute metabolic encephalopathy, acute hypoxic respiratory failure, bilateral pneumonia, hypokalemia, abdominal distention, dysphagia and severe protein calorie malnutrition. Coding Level of Care Code 28006 High Time for a total of 80 minutes, includes reviewing past or interval history, examining/interviewing patient, placing orders, counseling patient/family/other support, updating patient/family/other support, discussing plan of care with staff, communicating with other healthcare providers, documenting encounter and coordinating care Other Coding Information Focused coding review requested Diagnoses Acute hypoxic respiratory failure J96.01 Aspiration pneumonia J69.0 Hypokalemia E87.6 Severe protein-calorie malnutrition E43 Hypothyroidism E03.9 Oropharyngeal dysphagia R13.12 Acute metabolic encephalopathy G93.41
[2024-07-03 21:00] VITALS: PULSE 96; RESP 20; O2SAT 97
[2024-07-03 21:07] LABS: Magnesium 2.4 mg/dL (1.7-2.3); Phosphorus 2.3 mg/dL (2.5-4.5)
[2024-07-03 21:31] LABS: INR 1.11 (0.8-1.2)
[2024-07-03 21:32] LABS: Partial Thromboplastin Time 30.1 SECONDS (23.9-36.7)
[2024-07-03 21:37] LABS: Lactic Acid level (Lactate) 3.1 mmol/L (0.5-2.2)
--- NOTE | 2024-07-03 23:00 | CTR_ITS ---
PROCEDURE INFORMATION: Exam: CT Chest With Contrast; Diagnostic Exam date and time: 07/04/2024 12:04 AM Age: 89 years old Clinical indication: Bloating; Cough and shortness of breath; Cough with SOB and hypoxia. Abd distention with no bowel sounds. History of chf, copd, and bph. ; Additional info: Further evaluation of cxr. Abdominal distention. TECHNIQUE: Imaging protocol: Diagnostic computed tomography of the chest with contrast. Radiation optimization: All CT scans at this facility use at least one of these dose optimization techniques: automated exposure control; mA and/or kV adjustment per patient size (includes targeted exams where dose is matched to clinical indication); or iterative reconstruction. Contrast material: OMNI 350; Contrast volume: 75 ml; Contrast route: INTRAVENOUS (IV); COMPARISON: CR (CHEST, ) 07/03/2024 6:21 PM RADIATION DOSE METRICS: Total DLP (mGy-cm): 1947.14 FINDINGS: Thyroid: Homogeneous thyroid. Lungs: Severe compressive atelectasis in the right lung. There is heterogeneous infiltrate throughout both lungs, most severe in the left lower lobe. Respiratory motion artifact noted throughout the exam, limiting assessment of fine detail. No gross endobronchial debris or occlusion. Pleural spaces: There is a large right pleural effusion without loculation. Heart: Heart is mildly enlarged. Coronary arteries: Mild coronary artery calcification. Lymph nodes: No enlarged lymph nodes. Vasculature: Normal caliber thoracic aorta without evidence of acute dissection. Normal caliber pulmonary artery tree. Bones/joints: No acute fracture or destructive lesion. Soft tissues: Unremarkable. PROCEDURE INFORMATION: Exam: CT Abdomen And Pelvis With Contrast Exam date and time: 07/04/2024 12:04 AM Age: 89 years old Clinical indication: Bloating; Cough and shortness of breath; Cough with SOB and hypoxia. Abd distention with no bowel sounds. History of chf, copd, and bph. ; Additional info: Further evaluation of cxr. Abdominal distention. TECHNIQUE: Imaging protocol: Computed tomography of the abdomen and pelvis with contrast. Radiation optimization: All CT scans at this facility use at least one of these dose optimization techniques: automated exposure control; mA and/or kV adjustment per patient size (includes targeted exams where dose is matched to clinical indication); or iterative reconstruction. Contrast material: OMNI 350; Contrast volume: 75 ml; Contrast route: INTRAVENOUS (IV); COMPARISON: CR (CHEST, ) 07/03/2024 6:21 PM RADIATION DOSE METRICS: Total DLP (mGy-cm): 1947.14 FINDINGS: Diaphragm: Small sliding hiatal hernia. Liver: Liver measures 17.0 cm in length. Tiny hypoattenuating foci in the liver are too small to fully characterize but likely cysts or bile duct hamartomas. Gallbladder and biliary ducts: No gallbladder inflammatory change or biliary tree dilation. No visible high density stones. Pancreas: Normal. No ductal dilation. Spleen: Spleen measures 12.8 cm in length and appears homogeneous. Adrenal glands: Normal configuration. Kidneys and ureters: Simple cyst lower pole left kidney. Kidneys enhance symmetrically and demonstrate no evidence of mass, calculus, obstruction, or inflammation. Stomach and bowel: Rectum is distended with liquid debris in demonstrates mild mucosal enhancement. There is abnormal rotation of the sigmoid mesentery. Severe gaseous distension the sigmoid colon is evident. There is moderate severe gas and fecal debris in the colon proximal to the sigmoid. Normal caliber small bowel. Decompressed stomach without visible mass or ulcer. Bowel enhances normally throughout. Appendix: Normal appendix is confirmed. Intraperitoneal space: No free air. No significant fluid collection. Vasculature: Mild aortoiliac calcific atherosclerosis without aneurysm. Lymph nodes: No enlarged lymph nodes. Urinary bladder: Unremarkable as visualized. Reproductive: Physiologic appearance for age. Bones/joints: No fracture or destructive lesion. Soft tissues: Moderate body wall edema. There is a sliver of in the left lateral abdominal wall, etiology unclear (series 6, image 58 and series 11, image 42). Fat containing left direct inguinal hernia. No skin breakdown. CT/CT chest abdpel w/*[id number] IMPRESSION: Large right pleural effusion without definite loculation. There is extensive bilateral airspace disease compatible with pneumonia. IMPRESSION: 1. 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 No current findings of bowel ischemia or infarction. 2. There is a sliver of gas in the left lateral abdominal wall musculature, etiology and significance unclear. No other ectopic gas is seen. COMMENTS: Consistent with the [employer]'s Incidental Findings Committee white paper (J Am Tran Radiol 2018): Any incidental renal lesion less than 1 cm or classified as too small to characterize, or any incidental cystic renal lesion characterized as simple-appearing, is likely benign. No follow-up imaging is recommended for these lesions per consensus recommendations based on imaging criteria.
[2024-07-03 23:45] LABS: Estmated Average Glucose 105; Hemoglobin A1C 5.3 % (4.0-6.0)
[2024-07-03] MEDS: pantoprazole 40 mg SDV IVP (23:57)
[2024-07-03] MEDS: methylPREDNISolone sod succ 125 mg/2 mL INJ IVP (23:57)
[2024-07-03] MEDS: enoxaparin 30 mg/0.3 mL Syringe SUBCUT (23:58)
[2024-07-03] MEDS: sodium chloride 0.9% 1,000 ML 500 ML IV (23:58)
[2024-07-04] VITALS (26 sets, daily range): BP systolic 104–139; BP diastolic 46–70; PULSE 74–99; RESP 14–22; TEMP 36.4–36.8; O2SAT 90–99
--- NOTE | 2024-07-04 00:07 | USCV_ITS ---
Aleja Zoe Age: 89 Gender: M : 1935 Exam Date: 07/04/2024 07:21 Ordering Phys: Amanda Wilson MD Technologist: [employer] [place] [facility] [place]: [place] HISTORY: Lower extremity swelling. PROCEDURES: Venous duplex imaging was performed in bilateral lower extremities. Serial compression, augmentation maneuvers, and spectral Doppler flow evaluation were performed. FINDINGS: No evidence of DVT seen in any vessel visualized at this time. TDS due to pt not being awake or able to move legs on their own CONCLUSIONS No evidence of right lower extremity DVT. No evidence of left lower extremity DVT. Galen Hoover MD (Electronically Signed) Final Date: 04 Jul 2024 09:07 S
[2024-07-04] MEDS: iohexol 350 mg/mL 500 mL Btl (per mL) IV (00:11)
[2024-07-04] MEDS: ipratropium-albuterol 3 mL Neb INHALATION ×5 (00:24→20:28)
--- NOTE | 2024-07-04 00:47 | PM.MISC ---
Miscellaneous Note Note: Was called at 12:47. He has sigmoid volvulus with a colon obstruction, Bilateral pneumonia with a big non-loculated pleural effusion. General Surgeon was consulted emergently. The family member, the niece, Ms. Muniz, was called, who revealed that the patient's DPOA, Cris Masterson, has been for about 5 yrs. The niece changed the code status to full code.
[2024-07-04 01:27] LABS: Basophils % 0.3 %; Hematocrit 32.6 % (37-53); Lymphocytes # 0.2 10^3/uL (0.8-4.8); Lymphocytes % 2.8 %; Mean Corpuscular HGB Conc 32.5 g/dL (30-55); Mean Corpuscular Hemoglobin 34.4 pg (27-33); Mean Corpuscular Volume 105.8 fl (82-101); Mean Platelet Volume 9.8 fL (7.4-10.4); Monocytes # 0.4 10^3/uL (0.2-0.9); Monocytes % 6.7 %; Neutrophils # 5.38 10^3/uL (1.8-7.7); Neutrophils % 89.7 %; Nucleated Red Blood Cells % 0 %; Platelet Count 130 10^3/cmm (157-399); Red Blood Count 3.08 10^6/uL (3.85-5.65); Red Cell Distribution Width 15.4 % (12.1-15.1)
[2024-07-04 01:55] LABS: Lactic Sepsis W/Reflex 1.4 mmol/L (0.5-2.2)
[2024-07-04] MEDS: sodium chlor 0.9% + KCl 40 mEq 40 MEQ/1,000 ML BAG 250 MEQ IV (02:00)
[2024-07-04 02:07] LABS: Alanine Aminotransferase 17 U/L (0-41); Albumin Level 2.8 g/dL (3.5-5.2); Alkaline Phosphatase 94 U/L (40-130); Anion Gap 11.8 (5-19); Aspartate Amino Transferase 15 U/L (0-40); Blood Urea Nitrogen 25 mg/dL (8-23); Calcium 8.1 mg/dL (8.5-10.5); Carbon Dioxide 26 mmol/L (22-29); Chloride 107 mmol/L (98-107); Creatinine Clr Calc Pharmacy 40.9491; Globulin 3.1 g/dL (1.3-4.6); Glucose 130 mg/dL (65-115); Magnesium 2.2 mg/dL (1.7-2.3); Osmolality Calculated 300 mOsm/kg (285-295); Phosphorus 1.4 mg/dL (2.5-4.5); Sodium 142 mmol/L (136-145); Thyroid Stimulating Hormone 0.45 uIU/mL (0.27-4.20); Total Bilirubin 0.5 mg/dL (0.15-1.2); Total Protein 5.9 g/dL (6.6-8.7)
[2024-07-04 02:12] LABS: Potassium 2.8 mmol/L (3.5-5.1)
--- NOTE | 2024-07-04 02:16 | P.CONIM_ITS ---
Providers/Reason For Consult 2 Consulting Physician/Specialty*: Hospitalist Reason for Consult*: Sigmoid volvulus Requesting Physician: Amanda Wilson Attending Physician: Amanda Wilson MD Primary Care Provider: Omkar Perez DO History of Present Illness History of Present Illness Carlos Masterson is a 89 year old male nausea, vomiting and abdominal pain. HPI and review of systems is unobtainable due to the patient's altered mental status. CT demonstrates: IMPRESSION: 1. 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 No current findings of bowel ischemia or infarction. 2. There is a sliver of gas in the left lateral abdominal wall musculature, etiology and significance unclear. No other ectopic gas is seen. Stomach and bowel: Rectum is distended with liquid debris in demonstrates mild mucosal enhancement. There is abnormal rotation of the sigmoid mesentery. Severe gaseous distension the sigmoid colon is evident. There is moderate severe gas and fecal debris in the colon proximal to the sigmoid. Normal caliber small bowel. Decompressed stomach without visible mass or ulcer. Bowel enhances normally throughout. Appendix: Normal appendix is confirmed. Medications/Allergies Home Medications ?Medication ?Instructions ?Recorded ?Confirmed ?Last Taken ?Type azithromycin 250 mg tablet See Rx Instructions PO .COM PLEX #6 12/02/23 Unknown Rx (Zithromax Z-Alfa) tabs Allergies Allergy/AdvReac Type Severity Reaction Status Date / Time No Known Allergies Allergy Verified 12/02/23 18:55 Current Medications Generic Name Dose Route Start Last Admin Trade Name Freq PRN Reason Stop Dose Admin Albuterol/Ipratropium 3 ml 07/04/24 00:00 07/04/24 00:24 Ipratropium-Albuterol 3 Ml Neb INHALATION 3 ml Q4H.RESPIRATORY MARTIR Administration Enoxaparin Sodium 30 mg 07/03/24 22:15 07/03/24 23:58 Enoxaparin 30 Mg/0.3 Ml Syringe SUBCUT 30 mg Q24H MARTIR Administration PFSH Acute 2 PFSH: Medical History (Updated 07/04/24 @ 02:21 by Rufina Ureña MD) BPH (benign prostatic hyperplasia) Vitals/I&O/Wt Last Vital Signs Temp 98.3 F 07/03/24 17:48 Pulse 88 07/04/24 01:39 Resp 19 H 07/04/24 01:39 BP 115/70 07/04/24 01:39 Pulse Ox 94 07/04/24 01:39 O2 Del Method Nasal Cannula 07/04/24 01:25 O2 Flow Rate 4 07/04/24 00:28 FiO2 40 07/03/24 18:31 07/03/24 07/03/24 07/04/24 14:59 22:59 06:59 Intake Total 50 / 50 1105 / 1155 Balance 50 / 50 1105 / 1155 Weight last 48 hrs Weight 100 lb Physical Exam 2 Const: COMMON NORMALS: no acute distress; negative for patient oriented x3 and negative for alert OTHER: Confused but alert. Chest: COMMONS NORMALS: normal inspection of the chest Resp: COMMON NORMALS: normal respiratory effort and No use of accessory muscles OTHER: Requiring supplemental oxygen via nasal cannula. GI: OTHER: Abdomen is severely distended, taut, and tender to palpation diffusely in all quadrants. No guarding or rigidity. Neuro: COMMON NORMALS: negative for patient oriented x3 S ENSORIUM/ORIENTATION: No alert Data 07/03/24 18:08 07/04/24 01:19 Micro: Microbiology 07/03/24 18:45 Blood Culture - Preliminary Blood SPECIMEN COLLECTED 07/03/24 18:49 Blood Culture - Preliminary Blood SPECIMEN COLLECTED A&P Assessment and plan (1) Sigmoid volvulus: -- Plan for decompressive colonoscopy, possible exploratory laparotomy, possible detorsion of volvulus, possible bowel resection, possible ostomy, possible need to place surgical drains, possible bowel left in discontinuity, possible temporary abdominal closure. -- The patient is confused and altered mental status and is unable to provide his own consent. -- Consent was provided by the patient's next of kin over the phone, his niece, Radha Muniz. The risk, benefits, and alternative treatment options were discussed with the patient's niece in detail. This included but were not limited to, infection, bleeding, retained intra-abdominal organs, need to create an ostomy, need to be left intubated following surgery, possible prolonged ICU stay following surgery, possible debility, possible heart or lung complications, and even possible . All questions were answered, and the patient's niece consented and wished to proceed with procedures and surgeries. -- The patient will be full code during the immediate perioperative period. -- Dr. Amanda Wilson was also present for the entire consent phone process and spoke to the patient's niece directly herself. Two-physician verbal consent was obtained, nursing staff was also present. -- Medical management per the primary team, IV fluid hydration, correct electrolyte abnormalities prior to the procedures/surgeries, specifically hypokalemia. (2) Acute metabolic encephalopathy: (3) Hypothyroidism: (4) Severe protein-calorie malnutrition: (5) Oropharyngeal dysphagia: (6) Hypokalemia: (7) Aspiration pneumonia: (8) Acute hypoxic respiratory failure: (9) Pneumonia: PDMP PDMP Reviewed: Not Reviewed Coding Level of Care Code Acute Code for Chg Fwd Diagnoses Sigmoid volvulus K56.2 Acute metabolic encephalopathy G93.41 Hypothyroidism E03.9 Severe protein-calorie malnutrition E43 Oropharyngeal dysphagia R13.12 Hypokalemia E87.6 Aspiration pneumonia J69.0 Acute hypoxic respiratory failure J96.01 Pneumonia J18.9
[2024-07-04 02:22] LABS: LAB Peripheral Smear Sent for Review
[2024-07-04 02:27] LABS: Slide Review Slide Review Perform
[2024-07-04] MEDS: AZITHROMYCIN ADD-Vantage 500 MG in 0.9% NaCl ADD-Vantage 250 ML 250 MG IV (02:50)
[2024-07-04 02:51] LABS: Bilirubin Urine Negative (Negative); Blood Urine Negative (Negative); Glucose Urine UA Negative (Normal); Ketones Urine Negative (Negative); Leukocyte Esterase Urine Negative (Negative); Nitrate Urine Negative (Negative); Protein Urine 1+ (Negative); Urine Appearance Clear (CLEAR); Urine Color Yellow (Yellow)
[2024-07-04 02:57] LABS: Add Urine Microscopic? YES; Bacteria Urine Trace /hpf; Hyaline Casts Urine 0.81 /lpf; Squamous Epithelial Cell Urine 0-5 /hpf (0-5); WBC Urine 0-5 /hpf (0-5)
--- NOTE | 2024-07-04 02:57 | ANES.PREANE2 ---
Pre-Anesthetic Assessment Height/Weight: Height 5 ft 10 in Weight 100 lb Temp Pulse Resp BP Pulse Ox O2 Del Method O2 Flow Rate 98.3 F 91 18 139/61 94 Nasal Cannula 4 07/03/24 17:48 07/04/24 02:40 07/04/24 02:40 07/04/24 02:40 07/04/24 02:40 07/04/24 02:41 07/04/24 02:40 FiO2 40 07/03/24 18:31 Preop Diagnosis: sigmoid obstruction Was Beta Jaziel taken within 24 hours: N/A Was Clonidine taken within 24 hours: N/A Social unknown Exam alert and regular rate & rhythm oriented to self. rhonchi on auscultation Airway Mallampati: Class III Comments: Comments: edentulous Anesthetic Plan ASA status: 4E Anesthesia: General Other: [facility]. Per notes, oxygen saturations were low there. Patient has severe dementia and is unable to give any medical history Patient was placed on BiPAP in the ER. Initial lactic acid 3.6 Potassium 2.8, K+ given in the ER Chest x-ray showing bilateral pulmonary infiltrates, patient was seen in the ER 2 days ago with possible pneumonia and placed on antibiotics Patient is a DNR Currently has concern for a sigmoid volvulus that surgeon is wanting to do a decompressive colonoscopy for Vitals are currently stable EKG showing sinus tachycardia with RBBB Spoke with family who consent for GA. they understand DNR will be suspended during the perioperative period Plan for GETA Medications/Allergies Home Medications ?Medication ?Instructions ?Recorded ?Confirmed ?Last Taken ?Type azithromycin 250 mg tablet See Rx Instructions PO .COMPLEX #6 12/02/23 Unknown Rx (Zithromax Z-Alfa) tabs Allergies Allergy/AdvReac Type Severity Reaction Status Date / Time No Known Allergies Allergy Verified 12/02/23 18:55 Current Medications Generic Name Dose Route Start Last Admin Trade Name Freq PRN Reason Stop Dose Admin Albuterol/Ipratropium 3 ml 07/04/24 00:00 07/04/24 00:24 Ipratropium-Albuterol 3 Ml Neb INHALATION 3 ml Q4H.RESPIRATORY MARTIR Administration Enoxaparin Sodium 30 mg 07/03/24 22:15 07/03/24 23:58 Enoxaparin 30 Mg/0.3 Ml Syringe SUBCUT 30 mg Q24H MARTIR Administration Potassium Chloride/Sodium Chloride 40 meq in 1,000 mls @ 250 mls/hr 07/03/24 23:00 07/04/24 02:00 Sodium Chlor 0.9% + Kcl 40 Meq IV 07/04/24 02:59 250 mls/hr .Q4H MARTIR Administration Azithromycin 500 mg/ Sodium 250 mls @ 250 mls/hr 07/04/24 03:00 07/04/24 02:50 Chloride IV 250 mls/hr Q24H MARTIR Administration Protocol [facility] Anesthesia Medical History (Updated 07/04/24 @ 02:21 by Rufina Ureña MD) BPH (benign prostatic hyperplasia) Data Anesthesia 07/04/24 01:19 07/04/24 01:19 Short CBC 07/03/24 07/04/24 Range/Units 18:08 01:19 WBC 9.22 6.00 (3.29-11.43) 10^3/uL Hgb 11.40 10.60 L (11.27-16.99) g/dL Hct 36.2 L 32.6 L (37-53) % MCV 107.7 H 105.8 H (82-101) fl Plt Count 166 130 L (157-399) 10^3/cmm Neut % (Auto) 91.1 89.7 % Neut # (Auto) 8.40 H 5.38 (1.8-7.7) 10^3/uL BMP 07/03/24 07/04/24 18:08 01:19 Sodium 140 142 Potassium 2.8 L* 2.8 L* Chloride 103 107 Carbon Dioxide 20 L 26 BUN 25 H 25 H Creatinine 0.7 0.5 L Glucose 250 H 130 H Calcium 8.4 L 8.1 L Cardiac Enzymes 07/03/24 Range/Units 18:08 NT-Pro-B Natriuret Pep 1897 H (0-450) pg/mL Liver Function 07/03/24 07/04/24 Range/Units 18:08 01:19 Total Bilirubin 0.4 0.5 (0.15-1.2) mg/dL AST 18 15 (0-40) U/L ALT 20 17 (0-41) U/L Alkaline Phosphatase 104 94 (40-130) U/L Albumin 3.1 L 2.8 L (3.5-5.2) g/dL COVID Results 07/03/24 18:40 SARS-CoV-2 (PCR) Negative Coags 07/03/24 18:08 PT 15.10 H INR 1.11 APTT 30.1 ABG 07/03/24 18:14 Specimen Type Arterial Sample Site Radial, right ABG pH 7.38 ABG pCO2 42.1 ABG pO2 83.0 ABG HCO3 24.6 ABG Base Excess -0.7 O2 Delivery Device Nrb O2 Liters/Min 15.0 Microbiology 07/03/24 18:45 Blood Culture - Preliminary Blood SPECIMEN COLLECTED 07/03/24 18:49 Blood Culture - Preliminary Blood SPECIMEN COLLECTED
[2024-07-04 02:59] LABS: Specific Gravity, Urine 1.065 (1.005-1.030)
--- NOTE | 2024-07-04 03:18 | PC.NURSE ---
pt taken by GI lab team at [id number]
--- NOTE | 2024-07-04 05:16 | PC.NURSE ---
pt back from GI lab at 0510.
--- NOTE | 2024-07-04 05:18 | PC.NURSE ---
Addendum entered by Radha Moore RN 07/04/24 05:18: This was removed once DNR order was changed to FULL CODE by hospitalist. Original Note: DNR band removed.
[2024-07-04] MEDS: pantoprazole 40 mg SDV IVP (06:04)
--- NOTE | 2024-07-04 07:56 | PC.PHAR ---
[facility]04[facility] 7:56am
[2024-07-04 08:26] LABS: Glucose Point of Care 176 mg/dL (70-110)
[2024-07-04] MEDS: insulin lispro 100 unit/1 mL SUBCUT (08:29)
[2024-07-04] MEDS: methylPREDNISolone sod succ 125 mg/2 mL INJ 60 MG IVP (08:39)
[2024-07-04] MEDS: lidocaine 1% 5 ML in potassium chloride premix 100 ML 26.25 ML IV (08:40)
[2024-07-04] MEDS: piperacillin-tazobactam 3.375 GM in sodium chloride 0.9% (plus) 50 ML IV ×2 (09:18→17:12)
--- NOTE | 2024-07-04 09:35 | P.PN_ITS ---
Subjective 2 Subjective: Sigmoid volvulus reduced with scope in the morning Abdomen still benign Vitals/I&O/Wt Last Vital Signs Temp 98.3 F 07/04/24 04:19 Pulse 77 07/04/24 08:55 Resp 14 07/04/24 08:55 BP 104/51 07/04/24 08:55 Pulse Ox 95 07/04/24 08:55 O2 Del Method Nasal Cannula 07/04/24 08:55 O2 Flow Rate 4 07/04/24 08:55 FiO2 40 07/03/24 18:31 07/03/24 07/04/24 07/04/24 22:59 06:59 14:59 Intake Total 50 / 50 1355 / 1405 1000 / 1000 Balance 50 / 50 1355 / 1405 1000 / 1000 Weight last 48 hrs Weight 100 lb Physical Exam 2 Narrative: Chest: Unlabored breathing room air. No lymphadenopathy. Heart: Regular rate and rhythm. Abdomen: Soft, nontender, distended. No masses or lymphadenopathy. Urinary Catheter Management: Swain Latex: Cath Placed During This Visit: yes Urinary Catheter Date of Insertion: 07/04/24 Urinary Catheter Time of Insertion: 02:40 Data 07/04/24 01:19 07/04/24 01:19 Micro: Microbiology 07/03/24 18:45 Blood Culture - Preliminary Blood SPECIMEN COLLECTED 07/03/24 18:49 Blood Culture - Preliminary Blood SPECIMEN COLLECTED A&P Assessment and plan (1) Sigmoid volvulus: Plan 89-year-old male with multiple medical problems. Sigmoid volvulus reduced with colonoscope. Abdomen is benign. Once he is mental status improves can trial clear liquids. Will follow closely in case he develops a recurrent sigmoid volvulus. Rest of care per medicine. PDMP PDMP Reviewed: Not Reviewed Attestations 2 Medical Necessity Statement*: N/A Coding Level of Care Code 55422 Diagnoses Sigmoid volvulus K56.2
--- NOTE | 2024-07-04 09:36 | PC.NURSE ---
PROVIDER, VY, MADE AWARE THAT PATIENT IS TOO LETHARGIC FOR PO MEDS.
[2024-07-04 10:00] LABS: Glucose Point of Care 111 mg/dL (70-110)
--- NOTE | 2024-07-04 10:02 | PC.NURSE ---
LANTUS NOT GIVEN DUE TO PATIENT NOT ALERT TO EAT, FSBS 111. PROVIDER NOTIFIED.
--- NOTE | 2024-07-04 10:54 | US_ITS ---
WS: [id number] ULTRASOUND-GUIDED THORACENTESIS HISTORY: R pleural effusion Procedure, risks, and complications were explained to the patient. With the patient in an upright position, the skin over the RIGHT posterior thorax was cleansed with ChloraPrep and anesthetized with 1% buffered lidocaine. A 5 Arabic Yueh needle is inserted into the pleural fluid without complication. Approximately 1100 cc of clear pleural fluid is removed without difficulty. Specimen collected for analysis. / thoracentesis [id number] IMPRESSION: 1. RIGHT thoracentesis yielding 1100 cc of fluid. 2. Chest radiograph to follow to evaluate for pneumothorax.
--- NOTE | 2024-07-04 11:47 | PC.NURSE ---
Physical assessment performed as admission assessment was already completed. Patient is lethargic and has altered mental status noted. When speaking to him, he will spontaneously open his eyes and make grunting noises, but does not have any organized speech. He has crackles noted throughout all bilateral lung morales, with crackles being more coarse in bilateral lower posterior lobes. He had evidence of a dry cough during assessment, but is non-productive. He appears to be incontinent of stools at this time however is clean and dry during assessment. No open areas noted to any of patient's skin, his coccyx and eduarda areas appear to be increasingly moist, and pink, but all areas are blanching normally. Upon assessment of feet, patient has one sock in place to his left foot with 2+ edema noted above the sock. I removed the sock and assessed bilateral feet. Patient has no open areas noted to his feet, but I did leave the sock off as it was causing increased edema. Prior to leaving, I lowered the bed and elevated BLE to help with edema, then set the bed alarm. Patient is a high fall risk at this time. I communicated this information to Ruddy Chowdhury RN primary nurse caring for this patient as well as Carol Barron, manager actuarial.
[2024-07-04 12:03] LABS: Glucose Point of Care 112 mg/dL (70-110)
--- NOTE | 2024-07-04 12:11 | PC.NURSE ---
Carol Barron RN and I reviewed documentation and couldn't find an order for CDiff testing in patient's chart after being told by transporting coworkers from ED that he was being ruled out. I called and spoke with Dr. Herrera and reviewed this information with him. He states that he was told in report that he was being tested, so he assumed that the specimen had already been obtained and the order placed. I informed him that there were stool orders placed, but not CDiff specific. He provided a verbal order for CDiff testing and Nelly called lab to have it added to current sample and tests.
--- NOTE | 2024-07-04 15:45 | PC.NURSE ---
Spoke to patient's niece, Yen, about code status. She verbalized that patient's wishes were to be a AND and she wants to honor that. This nurse let her know that there were documents in the chart stating his DNR status but that he is a FULL CODE at this time. Yen agreed to have patient's code status changed back to AND.
--- NOTE | 2024-07-04 15:54 | XR_ITS ---
WS: [id number] PORTABLE CHEST HISTORY: POST THORACENTESIS, RIGHT COMPARISON: 07/03/2024 Lung volumes are decreased. No pneumothorax status post thoracentesis. Increasing pneumonia throughout the central LEFT lung. No residual effusion is identified. There is additional hazy attenuation throughout the RIGHT lung which may be atelectasis. Cardiac size: Normal. Mediastinum/Aorta: Mildly prominent mediastinum. Osteopenia. Increased air throughout the GI tract noted. This was also noted on the prior CT of the abdomen that was recently performed. XR/XR chest 1V portable [id number] IMPRESSION: No pneumothorax status post RIGHT thoracentesis. Increasing airspace disease central LEFT lung consistent with worsening pneumon ia.
[2024-07-04 16:22] LABS: Glucose Point of Care 106 mg/dL (70-110)
[2024-07-04 16:25] LABS: Cyto Order Verification No Order
--- NOTE | 2024-07-04 16:45 | P.PN_ITS ---
Subjective 2 Subjective: Lethargic. Vitals/I&O/Wt Last Vital Signs Temp 98.1 F 07/04/24 13:12 Pulse 74 07/04/24 16:29 Resp 18 07/04/24 16:29 BP 113/55 07/04/24 13:12 Pulse Ox 95 07/04/24 16:29 O2 Del Method Nasal Cannula 07/04/24 16:29 O2 Flow Rate 3 07/04/24 16:29 FiO2 40 07/03/24 18:31 07/04/24 07/04/24 07/04/24 06:59 14:59 22:59 Intake Total 1355 / 1405 1155 / 1155 Balance 1355 / 1405 1155 / 1155 Weight last 48 hrs Weight 69.853 kg Weight 45.359 kg Physical Exam 2 Const: GENERAL APPEARANCE: lethargic ORIENTATION/CONSCIOUSNESS: Yes confused and Yes lethargic HENMT: COMMON NORMALS: oropharynx normal Neck/C-Spine: COMMON NORMALS: no JVD Resp: COMMON NORMALS: normal respiratory effort and clear to auscultation bilaterally AUSCULTATION: clear to auscultation bilaterally Cardio: COMMON NORMALS: no JVD, regular rhythm, S1 normal heart sound present, S2 normal heart sound present and No murmurs present (Cardio) RHYTHM: regular rhythm HEART SOUNDS: S1 normal heart sound present and S2 normal heart sound present GI: COMMON NORMALS: Normal to inspection, nondistended, normoactive bowel sounds present, Soft to palpation and non-tender PALPATION: Yes Soft to palpation Extremity: COMMON NORMALS: no joint enlargement and no pedal edema Neuro: COMMON NORMALS: moves all extremities SENSORIUM/ORIENTATION: Yes lethargic Skin: COMMON NORMALS: no rashes or lesions noted GENERAL SKIN EXAM: no rashes or lesions noted Urinary Catheter Management: Swain Latex: Cath Placed During This Visit: yes Reason for Continuing Indwelling Catheter: Accurate Measurement of Urinary Output in Critically Ill Patients Urinary Catheter Date of Insertion: 07/04/24 Urinary Catheter Time of Insertion: 02:40 Data 07/04/24 01:19 07/04/24 01:19 Micro: Microbiology 07/03/24 18:45 Blood Culture - Preliminary Blood SPECIMEN COLLECTED 07/03/24 18:49 Blood Culture - Preliminary Blood SPECIMEN COLLECTED A&P Assessment and plan (1) Acute hypoxic respiratory failure: (2) Aspiration pneumonia: (3) Hypokalemia: (4) Severe protein-calorie malnutrition: (5) Hypothyroidism: (6) Oropharyngeal dysphagia: (7) Acute metabolic encephalopathy: Plan Carlos Masterson is a 89 yo man w/ COPD not on supplemental O2, DM2, HTN, Hypothyroidism, and Liver cirrhosis and BPH, who was brought from [facility] to the ED via EMS on 07/03/2024 with concerns of progresive dyspnea, respiratory distress, hypoxemia, and confusion. In the ED, ayanna was tachypneic and hypoxemic such that he was placed on non- rebreather, then eventually on BiPAP. His Influenza A/B, His CXR showed interstitial and patchy airspace opacities in the R. mid and lower lobe as well as gaseous distension of bowel loops. #Acute Metabolic Encephalopathy: Ongoing. Continue treatment of pneumonia. Assess pleural fluid. Reassess GI function. #Acute Hypoxic Resp failure: Reviewed vitals, CBC, chest x-ray, respiratory viral swab. Reviewed surgery note, ER provider note. Discussed with his next of kin and Yen Muniz. Appears to have pneumonia with large pleural effusion. #Community Acquired Pneumonia vs Aspiration pneumonia: As above, possible complicated pneumonia. Discussed with her and parents regarding obtaining thoracentesis. She is agreeable at this time, requested procedure and lab studies. Continue empiric antibiotic coverage for pneumonia. S/p thoracentesis, studies are pending..\ - F/u BCx. - Continue Zosyn. Start Azithromycin - He will need a swallow study. - Reviewed CT chest/abd/pelvis #Acute COPD Exacerbation: - Continue Duonebs, abx, PPI, Steroids. Monitor for risk of worsening encephalopathy, hypertension, hyperglycemia, gastritis. Sigmoid volvulus: Status post colonoscopy. Discussed with surgery, will be monitoring his condition for any signs of recurrence. #Hypokalemia: Requested additional potassium. Reviewed magnesium. Reassess chemistry. #At risk of REESE: #DM2 - Reviewed A1c. -Insulin glargine BID w/ low dose SSI w/ meals and high dose SSI at bedtime ordered. #Hypothyroidism - F/u TSH #Abdominal distension - hx of Liver Cirrhosis - Reviewed CT chest/abd/pelvis - Reassess liver fxn #Macrocytic anemia - Multiple possibilities including vitamin deficiencies vs cirrhosis if he has a liver etiology or due myelodysplastic syndrome - f/u iron studies, b12, folate, tsh, or Peripheral smear #Oropharyngeal Dysphagia - Will need swallow study ordered later. Underlying dementia #Severe Protein Calorie Malnutrition - Consulted Human Resources File Clerk for assessment and recs. #b/l LE swelling. - Reviewed venous duplex US. No DVT. #Code status: Had been changed to full code transiently per discussion with his next of kin. DVT ppx: Lovenox. GI ppx: PPI PDMP PDMP Reviewed: Not Reviewed Attestations 2 Medical Necessity Statement*: Continue admission for assessment management of pneumonia, possible complicated pneumonia with effusion, COPD exacerbation, acute encephalopathy, sigmoid volvulus. Diagnoses Acute hypoxic respiratory failure J96.01 Aspiration pneumonia J69.0 Hypokalemia E87.6 Severe protein-calorie malnutrition E43 Hypothyroidism E03.9 Oropharyngeal dysphagia R13.12 Acute metabolic encephalopathy G93.41
[2024-07-04 16:50] LABS: Appearance, Pleural Fluid CLOUDY (CLEAR); Color, Pleural Fluid Yellow (Pale Yellow)
[2024-07-04 16:51] LABS: Fluid Laterality Right Lower Pleural
[2024-07-04 17:20] LABS: Mononuclear %, Pleural Fluid 38 %; Polynuclear Cells, Pleural # 0.066 10^3/uL; Polynuclear Cells, Pleural % 62 %
[2024-07-04 18:00] LABS: Pleural Fluid Albumin 1.8 g/dL; Total Protein Pleural Fluid 2.7 g/dL
[2024-07-04 18:01] LABS: LDH Pleural Fluid 119 U/L; PATH Referral YES
[2024-07-04 20:51] LABS: Glucose Point of Care 110 mg/dL (70-110)
[2024-07-04] MEDS: enoxaparin 30 mg/0.3 mL Syringe SUBCUT (22:14)
[2024-07-05] VITALS (16 sets, daily range): BP systolic 111–158; BP diastolic 56–71; PULSE 69–94; RESP 15–22; TEMP 36.4–36.8; O2SAT 90–95
--- NOTE | 2024-07-05 00:09 | PC.NURSE ---
patient very lethargic and unable to swallow pills. patient was not given his PO senna due to this reason. patient was admitted for aspiration pneumonia and is NPO. lung sounds are very coarse and patient has expiratory wheezes. patient only alert to self at this time. has no complaints or signs or symptoms of pain at this time.
[2024-07-05] MEDS: ipratropium-albuterol 3 mL Neb INHALATION ×7 (00:32→23:42)
[2024-07-05] MEDS: piperacillin-tazobactam 3.375 GM in sodium chloride 0.9% (plus) 50 ML IV ×3 (00:54→16:12)
[2024-07-05] MEDS: AZITHROMYCIN ADD-Vantage 500 MG in 0.9% NaCl ADD-Vantage 250 ML 250 MG IV (02:46)
[2024-07-05 05:58] LABS: Basophils % 0.1 %; Hematocrit 32.4 % (37-53); Lymphocytes # 0.3 10^3/uL (0.8-4.8); Lymphocytes % 3.7 %; Mean Corpuscular HGB Conc 32.4 g/dL (30-55); Mean Corpuscular Hemoglobin 34.4 pg (27-33); Mean Corpuscular Volume 106.2 fl (82-101); Mean Platelet Volume 10.1 fL (7.4-10.4); Monocytes # 0.5 10^3/uL (0.2-0.9); Monocytes % 6.1 %; Neutrophils # 7.63 10^3/uL (1.8-7.7); Nucleated Red Blood Cells % 0 %; Platelet Count 148 10^3/cmm (157-399); Red Blood Count 3.05 10^6/uL (3.85-5.65); Red Cell Distribution Width 15.5 % (12.1-15.1); White Blood Count 8.57 10^3/uL (3.29-11.43)
[2024-07-05 06:11] LABS: Alanine Aminotransferase 15 U/L (0-41); Albumin Level 2.6 g/dL (3.5-5.2); Alkaline Phosphatase 112 U/L (40-130); Anion Gap 13.6 (5-19); Aspartate Amino Transferase 13 U/L (0-40); Blood Urea Nitrogen 29 mg/dL (8-23); Calcium 8.2 mg/dL (8.5-10.5); Carbon Dioxide 25 mmol/L (22-29); Chloride 114 mmol/L (98-107); Creatinine Clr Calc Pharmacy 64.7664; Glucose 102 mg/dL (65-115); Magnesium 2.5 mg/dL (1.7-2.3); Osmolality Calculated 314 mOsm/kg (285-295); Phosphorus 1.6 mg/dL (2.5-4.5); Potassium 3.6 mmol/L (3.5-5.1); Sodium 149 mmol/L (136-145); Total Bilirubin 0.3 mg/dL (0.15-1.2); Total Protein 5.6 g/dL (6.6-8.7)
[2024-07-05] MEDS: pantoprazole 40 mg SDV IVP (06:24)
[2024-07-05 06:55] LABS: Glucose Point of Care 100 mg/dL (70-110)
--- NOTE | 2024-07-05 07:05 | P.PN_ITS ---
Subjective 2 Subjective: Patient awake and answering questions No abdominal pain. No nausea Abdomen benign. Distended. Vitals/I&O/Wt Last Vital Signs Temp 98 F 07/05/24 03:34 Pulse 77 07/05/24 04:26 Resp 16 07/05/24 04:26 BP 111/56 07/05/24 03:34 Pulse Ox 93 07/05/24 04:26 O2 Del Method Nasal Cannula 07/05/24 04:26 O2 Flow Rate 2 07/05/24 04:26 FiO2 40 07/03/24 18:31 07/04/24 07/05/24 07/05/24 22:59 06:59 14:59 Intake Total 350 / 1505 Output Total 1200 / 1200 800 / 2000 Balance -1200 / -45 -450 / -495 Weight last 48 hrs Weight 154 lb Weight 154 lb Weight 100 lb Physical Exam 2 Narrative: Chest: Unlabored breathing on nasal cannula. no lymphadenopathy. Heart: Regular rate and rhythm. Abdomen: Soft, nontender, distended. No masses or lymphadenopathy. Urinary Catheter Management: Swain Latex: Cath Placed During This Visit: yes Reason for Continuing Indwelling Catheter: Acute Urinary Retention or Obstruction Urinary Catheter Date of Insertion: 07/04/24 Urinary Catheter Time of Insertion: 02:40 Data 07/05/24 05:28 07/05/24 05:28 Micro: Microbiology 07/03/24 18:45 Blood Culture - Preliminary Blood NEGATIVE TO DATE 07/03/24 18:49 Blood Culture - Preliminary Blood NEGATIVE TO DATE 07/04/24 16:00 Gram Stain - Final Pleural Fluid A&P Assessment and plan (1) Sigmoid volvulus: Plan 89-year-old male with multiple medical problems. Surgery consulted for possible sigmoid volvulus which was reduced colonoscopically. Patient is now awake and denies abdominal pain or nausea. Okay to trial clears. Will continue following closely. PDMP PDMP Reviewed: Not Reviewed Attestations 2 Medical Necessity Statement*: N/A Coding Level of Care Code 29379 Diagnoses Sigmoid volvulus K56.2
[2024-07-05] MEDS: methylPREDNISolone sod succ 125 mg/2 mL INJ 60 MG IVP (09:23)
[2024-07-05] MEDS: insulin glargine 100 units/1 mL 20 UNIT SUBCUT (09:23)
[2024-07-05 11:53] LABS: Glucose Point of Care 38 mg/dL (70-110)
[2024-07-05 12:08] LABS: C.Diff PCR (Lab) NEGATIVE (Negative)
[2024-07-05 12:09] LABS: Glucose Point of Care 56 mg/dL (70-110)
[2024-07-05 12:42] LABS: Glucose Point of Care 95 mg/dL (70-110)
[2024-07-05 15:09] LABS: Campylobacter Group NOT DETECTED (NOT DETECTED); Norovirus GI/GII NOT DETECTED (NOT DETECTED); Rotavirus A NOT DETECTED (NOT DETECTED); Shiga Toxin 1 NOT DETECTED (NOT DETECTED); Shigella Species NOT DETECTED (NOT DETECTED); Vibrio Group NOT DETECTED (NOT DETECTED); Yersinia Enterocolotica NOT DETECTED (NOT DETECTED)
[2024-07-05 17:18] LABS: Glucose Point of Care 127 mg/dL (70-110)
--- NOTE | 2024-07-05 17:49 | P.PN_ITS ---
Subjective 2 Subjective: She is awake and alert today. She is oriented to the name of [facility], thinks she is in a rest home. Tells me the year is 2007. However, otherwise pleasant, conversant, answering appropriately. Not currently bothered by pain or discomfort. Denies being aware of choking up with food or drink. Denies seeing any hematuria at home. Vitals/I&O/Wt Last Vital Signs Temp 97.6 F 07/05/24 16:22 Pulse 87 07/05/24 16:22 Resp 16 07/05/24 16:22 BP 136/62 07/05/24 16:22 Pulse Ox 95 07/05/24 16:22 O2 Del Method Nasal Cannula 07/05/24 16:22 O2 Flow Rate 4 07/05/24 16:22 FiO2 40 07/03/24 18:31 07/05/24 07/05/24 07/05/24 06:59 14:59 22:59 Intake Total 350 / 1505 694 / 694 50 / 744 Output Total 800 / 2000 Balance -450 / -495 694 / 694 50 / 744 Weight last 48 hrs Weight 69.853 kg Weight 69.853 kg Physical Exam 2 Const: COMMON NORMALS: alert HENMT: COMMON NORMALS: oropharynx normal Neck/C-Spine: COMMON NORMALS: no JVD Resp: COMMON NORMALS: normal respiratory effort and clear to auscultation bilaterally AUSCULTATION: clear to auscultation bilaterally Cardio: COMMON NORMALS: no JVD, regular rhythm, S1 normal heart sound present, S2 normal heart sound present and No murmurs present (Cardio) RHYTHM: regular rhythm HEART SOUNDS: S1 normal heart sound present and S2 normal heart sound present GI: COMMON NORMALS: Normal to inspection, nondistended, normoactive bowel sounds present, Soft to palpation and non-tender PALPATION: Yes Soft to palpation : OTHER: Mildly to moderately opaque hematuria. No clots. Extremity: COMMON NORMALS: no joint enlargement and no pedal edema Neuro: COMMON NORMALS: moves all extremities SENSORIUM/ORIENTATION: Yes alert Skin: COMMON NORMALS: no rashes or lesions noted GENERAL SKIN EXAM: no rashes or lesions noted Urinary Catheter Management: Swain Latex: Cath Placed During This Visit: yes Reason for Continuing Indwelling Catheter: Acute Urinary Retention or Obstruction Urinary Catheter Date of Insertion: 07/04/24 Urinary Catheter Time of Insertion: 02:40 Data 07/05/24 05:28 07/05/24 05:28 Micro: Microbiology 07/04/24 16:00 Gram Stain - Final Pleural Fluid Body Fluid Culture - Preliminary 07/03/24 18:45 Blood Culture - Preliminary Blood NEGATIVE TO DATE 07/03/24 18:49 Blood Culture - Preliminary Blood NEGATIVE TO DATE A&P Assessment and plan (1) Acute hypoxic respiratory failure: (2) Aspiration pneumonia: (3) Hypokalemia: (4) Severe protein-calorie malnutrition: (5) Hypothyroidism: (6) Oropharyngeal dysphagia: (7) Acute metabolic encephalopathy: Plan Carlos Masterson is a 89 yo man w/ COPD not on supplemental O2, DM2, HTN, Hypothyroidism, and Liver cirrhosis and BPH, who was brought from [facility] to the ED via EMS on 07/03/2024 with concerns of progresive dyspnea, respiratory distress, hypoxemia, and confusion. In the ED, ayanna was tachypneic and hypoxemic such that he was placed on non- rebreather, then eventually on BiPAP. His Influenza A/B, His CXR showed interstitial and patchy airspace opacities in the R. mid and lower lobe as well as gaseous distension of bowel loops. #Acute Metabolic Encephalopathy: So far appears to be improved or resolved. He is awake, answering appropriately. Not oriented to year. States name of the city correctly, thinks he is in a restaurant, but reorients to being in the hospital. Continue To reorient, treat underlying problems. #Acute Hypoxic Resp failure: Resolved respiratory failure, still requiring 4 L nasal cannula oxygen. Continue support and treatment of pneumonia. Reviewed pleural fluid studies, reviewed vitals, CBC, CMP, Discussed with the surgeon and his next of kin. 1.1L effusion drained. With improved mental status.So far remaining afebrile, without leukocytosis. Will reassess condition. As per discussion chest tube was considered, for now deferred given the improvement in risks. #Community Acquired Pneumonia vs Aspiration pneumonia: As above, complicated pneumonia. - F/u BCx. Reviewed culture, negative to date. - Continue Zosyn. Azithromycin - Requesting AST and swallow study. - Reviewed CT chest/abd/pelvis Sigmoid volvulus: Discussed with the surgeon, appreciate reassessment. So far without evidence of recurrence. He is doing better, awake and alert. Surgery is trialing clear liquid diet. Status post colonoscopy. Discussed with surgery, will be monitoring his condition for any signs of recurrence. Hematuria: Denies any pain or discomfort, no lower abdominal pain or tenderness. Mildly to moderately opaque hematuria without clots. Denies recalling hematuria at home. Has not been noted to pull on Swain, has been calm and cooperative since mental status improved. Requested UA. Monitor for any worsening hematuria. Hold Lovenox. #Acute COPD Exacerbation: Significant wheezing today. Discussed with nurse, RT. - Continue Duonebs, abx, PPI, Steroids. Monitor for risk of worsening encephalopathy, hypertension, hyperglycemia, gastritis. #Hypokalemia: Requested additional potassium. Reviewed magnesium. Reassess chemistry. #At risk of REESE: #DM2 - Reviewed A1c. -Insulin glargine BID w/ low dose SSI w/ meals and high dose SSI at bedtime ordered. Monitor for risk of hypoglycemia. #Hypothyroidism - F/u TSH #Abdominal distension - hx of Liver Cirrhosis - Reviewed CT chest/abd/pelvis - Reassess liver fxn #Macrocytic anemia - Multiple possibilities including vitamin deficiencies vs cirrhosis if he has a liver etiology or due myelodysplastic syndrome - f/u iron studies, b12, folate, tsh, or Peripheral smear #Oropharyngeal Dysphagia - swallow study Underlying dementia #Severe Protein Calorie Malnutrition - Consulted Teller Supervisor for assessment and recs. #b/l LE swelling. - Reviewed venous duplex US. No DVT. #Code status: Had been changed to full code transiently per discussion with his next of kin. DVT ppx: Lovenox. GI ppx: PPI Discussed with his next of kin Yenbrisa Muniz. PDMP PDMP Reviewed: Not Reviewed Attestations 2 Medical Necessity Statement*: Continue admission for assessment management of pneumonia, possible complicated pneumonia with effusion, COPD exacerbation, acute encephalopathy, sigmoid volvulus. and High MDM includes amount and/or complexity of data reviewed/ordered [ resulted lab(s)/test(s), ordered lab(s)/test(s) and other healthcare professional discussion] and described risk of complication, morbidity or mortality of management as documented Diagnoses Acute hypoxic respiratory failure J96.01 Aspiration pneumonia J69.0 Hypokalemia E87.6 Severe protein-calorie malnutrition E43 Hypothyroidism E03.9 Oropharyngeal dysphagia R13.12 Acute metabolic encephalopathy G93.41
--- NOTE | 2024-07-05 18:34 | PC.NURSE ---
Pt's abdomen has become more distended since beginning of shift this morning. Pt does not complain of pain. Doctor notified and aware.
[2024-07-05 18:48] LABS: Bilirubin Urine 2+ (Negative); Blood Urine 3+ (Negative); Glucose Urine UA Negative (Normal); Ketones Urine Negative (Negative); Leukocyte Esterase Urine 2+ (Negative); Nitrate Urine Negative (Negative); Protein Urine 3+ (Negative); Specific Gravity, Urine 1.023 (1.005-1.030); Urine Appearance Turbid (CLEAR); pH Urine 5.5 (5-7)
[2024-07-05 18:56] LABS: Add Urine Microscopic? YES; Hyaline Casts Urine 1.59 /lpf; RBC Urine >100 /hpf (0-2); Squamous Epithelial Cell Urine 0-5 /hpf (0-5); WBC Urine 21-50 /hpf (0-5)
[2024-07-05 19:10] LABS: Add Urine Culture? Yes; UA Slide Review UA Slide Review Perf; Urine Color Red (Yellow)
[2024-07-05 19:11] LABS: Amorphous Sediment Urine 2+ /hpf; Bacteria Urine 1+ /hpf
--- NOTE | 2024-07-05 19:40 | PM.MISC ---
Miscellaneous Note Note: Evaluated patient at 1940. Awake. Had a bowel movement today confirmed with nursing. Abdomen distended, non tender, non peritonitic. Tolerating clears. Will continue expectant management.
[2024-07-05 20:55] LABS: Glucose Point of Care 214 mg/dL (70-110)
[2024-07-05] MEDS: insulin glargine 100 units/1 mL 10 UNIT SUBCUT (21:49)
[2024-07-05] MEDS: sennosides 8.6 mg Tablet 17.2 MG PO (21:49)
[2024-07-05] MEDS: insulin lispro 100 unit/1 mL SUBCUT (21:49)
[2024-07-06] VITALS (13 sets, daily range): BP systolic 110–147; BP diastolic 59–71; PULSE 67–104; RESP 15–24; TEMP 36.4–36.7; O2SAT 90–98
[2024-07-06] MEDS: piperacillin-tazobactam 3.375 GM in sodium chloride 0.9% (plus) 50 ML IV ×3 (01:22→20:17)
[2024-07-06] MEDS: AZITHROMYCIN ADD-Vantage 500 MG in 0.9% NaCl ADD-Vantage 250 ML 250 MG IV (03:45)
[2024-07-06] MEDS: ipratropium-albuterol 3 mL Neb INHALATION ×4 (04:08→20:18)
[2024-07-06] MEDS: morphine 4 mg/mL SDV 1 mL 2 MG IVP ×2 (04:59→20:25)
[2024-07-06] MEDS: pantoprazole 40 mg SDV IVP (06:06)
[2024-07-06 06:11] LABS: Basophils % 0.3 %; Eosinophils % 0.3 %; Lymphocytes # 0.4 10^3/uL (0.8-4.8); Lymphocytes % 2.9 %; Mean Corpuscular Hemoglobin 35.1 pg (27-33); Mean Corpuscular Volume 113.3 fl (82-101); Mean Platelet Volume 10.9 fL (7.4-10.4); Monocytes # 0.7 10^3/uL (0.2-0.9); Monocytes % 5.6 %; Neutrophils # 11.38 10^3/uL (1.8-7.7); Nucleated Red Blood Cells % 0 %; Platelet Count 154 10^3/cmm (157-399); Red Blood Count 3.53 10^6/uL (3.85-5.65); Red Cell Distribution Width 15.9 % (12.1-15.1); White Blood Count 12.78 10^3/uL (3.29-11.43)
[2024-07-06 06:58] LABS: Glucose Point of Care 100 mg/dL (70-110)
--- NOTE | 2024-07-06 06:59 | P.PN_ITS ---
Subjective 2 Subjective: Awake Denies abdominal pain Had a small bowel movement yesterday Abdomen distended but benign Vitals/I&O/Wt Last Vital Signs Temp 97.6 F 07/06/24 04:42 Pulse 83 07/06/24 04:42 Resp 15 07/06/24 04:59 BP 110/59 07/06/24 04:42 Pulse Ox 93 07/06/24 04:42 O2 Del Method Nasal Cannula 07/06/24 04:14 O2 Flow Rate 4 07/06/24 04:14 FiO2 40 07/03/24 18:31 07/05/24 07/05/24 07/06/24 14:59 22:59 06:59 Intake Total 694 / 694 400 / 1094 300 / 1394 Output Total 800 / 800 350 / 1150 Balance 694 / 694 -400 / 294 -50 / 244 Weight last 48 hrs Weight 154 lb Weight 154 lb Weight 154 lb Physical Exam 2 Narrative: Chest: Unlabored breathing room air. No lymphadenopathy. Heart: Regular rate and rhythm. Abdomen: Soft, nontender, nondistended. No masses or lymphadenopathy. Urinary Catheter Management: Swain Latex: Cath Placed During This Visit: yes, but has since been removed by the nurse Reason for Continuing Indwelling Catheter: Not indwelling catheter Urinary Catheter Date of Insertion: 07/04/24 Urinary Catheter Time of Insertion: 02:40 Date Urinary Catheter Removed: 07/05/24 Time Urinary Catheter Discontinued: 17:45 Swain: Cath Placed During This Visit: yes Reason for Continuing Indwelling Catheter: Acute Urinary Retention or Obstruction Urinary Catheter Date of Insertion: 07/05/24 Urinary Catheter Time of Insertion: 17:45 Data 07/06/24 04:55 07/06/24 07:02 Micro: Microbiology 07/04/24 16:00 Gram Stain - Final Pleural Fluid Body Fluid Culture - Preliminary A&P Assessment and plan (1) Ileus: Plan 89-year-old male with multiple medical problems whom surgery was initially consulted for sigmoid volvulus. Patient had a bowel movement yesterday and has no abdominal pain. Given his persistent distention a CT scan with rectal contrast was carried out. 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 Recommend daily Dulcolax suppositories. Ileus should improve once his medical problems are under control. I recommend against placing a chest tube since he is a cirrhotic and he is likely to reaccumulate these, additionally has an increased bleeding risk. Consider thoracentesis as needed. Will continue following closely. PDMP PDMP Reviewed: Not Reviewed Attestations 2 Medical Necessity Statement*: N/A Coding Level of Care Code 85619 Diagnoses Ileus K56.7
--- NOTE | 2024-07-06 07:16 | CTR_ITS ---
PROCEDURE INFORMATION: Exam: CT Abdomen And Pelvis With Contrast Exam date and time: 07/06/2024 9:26 AM Age: 89 years old Clinical indication: Condition or disease; Sigmoid volvus and obstruction seen in CT from 07/04/24. Rectal and iv contrast given. Post revac images obtained. ; Additional info: Eval for sigmoid volvulus, administer rectal contrast, needs rectal contrast TECHNIQUE: Imaging protocol: Computed tomography of the abdomen and pelvis with contrast. Radiation optimization: All CT scans at this facility use at least one of these dose optimization techniques: automated exposure control; mA and/or kV adjustment per patient size (includes targeted exams where dose is matched to clinical indication); or iterative reconstruction. Contrast material: OMNI 350; Contrast volume: 100 ml; Contrast route: INTRAVENOUS (IV); COMPARISON: CT chest abdpel w/*[id number] 07/04/2024 12:04 AM RADIATION DOSE METRICS: Total DLP (mGy-cm): 681.06 FINDINGS: Pleural spaces: There is a prominent right pleural effusion again noted with collapse of the right lower lobe again seen. Strandy opacities are present in the left hemithorax and right middle lobe possibly representing chronic scarring although bilateral infiltrates and pneumonia can not be excluded. These findings are similar to those present on 07/04/2024. Liver: Normal. No mass. Gallbladder and biliary ducts: Normal. No calcified stones. No ductal dilation. Pancreas: Normal. No ductal dilation. Spleen: Normal. No splenomegaly. Adrenal glands: Normal. No mass. Kidneys and ureters: Simple cysts are seen in the left kidney unchanged from 07/04/2024. Stomach and bowel: There is gaseous distension of the colon again noted with rectal contrast extending to the distal transverse colon. There is focal luminal narrowing of the sigmoid colon in the right flank near the level of the anterior superior iliac spine (series 4: Image 63, series 6: Image 36 and series 7: Images 52-54). After removal of the rectal balloon, there has been decompression of the rectum and sigmoid colon and decreased distension of the remainder of the colon. There is bowel wall thickening of the rectum, findings that could represent chronic proctitis although a circumferential rectal mass can not be entirely excluded. Appendix: No evidence of appendicitis. Intraperitoneal space: Unremarkable. No free air. No significant fluid collection. Vasculature: Unremarkable. No abdominal aortic aneurysm. Lymph nodes: Unremarkable. No enlarged lymph nodes. Urinary bladder: Unremarkable as visualized. Reproductive: Unremarkable as visualized. Bones/joints: See Stomach and bowel finding. Soft tissues: Low attenuation stranding is seen in the left paracolic gutter and some stranding is seen in the mesenteric and pelvic fat and fascia, findings could represent some inflammatory or edematous changes. There is fat stranding seen in the soft tissues of the abdomen posterolaterally. The small left direct inguinal hernia contains a knuckle of small bowel. CT/CT abdomen pelvis w con* [id number] IMPRESSION: 1. Gaseous distension of the colon is again noted with rectal contrast extending to the level of the distal transverse colon. There is focal luminal narrowing of the sigmoid colon in the right flank as described above. 2. There is moderate irregular thickening of the rectal wall on decompression of the colon following removal of the rectal balloon. This finding could represent chronic proctitis although a circumferential mural rectal mass can not be entirely excluded. 3. Stranding and hazy opacity seen in the left paracolic gutter, pelvic fat and fascia and sigmoid mesenteric fat could represent mild inflammatory changes or edema. 4. Large right pleural effusion again noted. 5. Right lower lobe atelectasis and collapse and bilateral basilar opacities again seen, findings could represent bilateral basilar pneumonia.
[2024-07-06 07:37] LABS: Alanine Aminotransferase 17 U/L (0-41); Albumin Level 2.7 g/dL (3.5-5.2); Alkaline Phosphatase 95 U/L (40-130); Anion Gap 12.4 (5-19); Aspartate Amino Transferase 15 U/L (0-40); Blood Urea Nitrogen 27 mg/dL (8-23); Calcium 8.4 mg/dL (8.5-10.5); Carbon Dioxide 28 mmol/L (22-29); Chloride 113 mmol/L (98-107); Creatinine Clr Calc Pharmacy 64.7664; Globulin 3.3 g/dL (1.3-4.6); Glucose 102 mg/dL (65-115); Magnesium 2.4 mg/dL (1.7-2.3); Osmolality Calculated 315 mOsm/kg (285-295); Phosphorus 1.5 mg/dL (2.5-4.5); Potassium 3.4 mmol/L (3.5-5.1); Sodium 150 mmol/L (136-145); Total Bilirubin 0.6 mg/dL (0.15-1.2)
[2024-07-06] MEDS: docusate sodium 100 mg Capsule 200 MG PO (08:18)
[2024-07-06] MEDS: methylPREDNISolone sod succ 125 mg/2 mL INJ 60 MG IVP (09:06)
[2024-07-06] MEDS: iohexol 350 mg/mL 500 mL Btl (per mL) IV (09:45)
--- NOTE | 2024-07-06 10:32 | P.PN_ITS ---
Subjective 2 Subjective: Feels breathing is little worse today. Vitals/I&O/Wt Last Vital Signs Temp 97.9 F 07/06/24 07:38 Pulse 99 07/06/24 08:28 Resp 20 H 07/06/24 08:28 BP 123/62 07/06/24 07:38 Pulse Ox 93 07/06/24 08:28 O2 Del Method Nasal Cannula 07/06/24 08:28 O2 Flow Rate 4 07/06/24 08:28 FiO2 40 07/03/24 18:31 07/05/24 07/06/24 07/06/24 22:59 06:59 14:59 Intake Total 400 / 1094 300 / 1394 50 / 50 Output Total 800 / 800 350 / 1150 Balance -400 / 294 -50 / 244 50 / 50 Weight last 48 hrs Weight 69.853 kg Weight 69.853 kg Weight 69.853 kg Physical Exam 2 Const: COMMON NORMALS: alert ORIENTATION/CONSCIOUSNESS: Yes oriented to place HENMT: COMMON NORMALS: oropharynx normal Neck/C-Spine: COMMON NORMALS: no JVD Resp: AUSCULTATION: wheezes Cardio: COMMON NORMALS: no JVD, regular rhythm, S1 normal heart sound present, S2 normal heart sound present and No murmurs present (Cardio) RHYTHM: regular rhythm HEART SOUNDS: S1 normal heart sound present and S2 normal heart sound present GI: COMMON NORMALS: Normal to inspection, nondistended, normoactive bowel sounds present, Soft to palpation and non-tender PALPATION: Yes Soft to palpation : OTHER: Mildly opaque hematuria. No clots. Extremity: COMMON NORMALS: no joint enlargement and no pedal edema Neuro: COMMON NORMALS: moves all extremities SENSORIUM/ORIENTATION: Yes alert and Yes oriented to place Skin: COMMON NORMALS: no rashes or lesions noted GENERAL SKIN EXAM: no rashes or lesions noted Urinary Catheter Management: Swain Latex: Cath Placed During This Visit: yes, but has since been removed by the nurse Reason for Continuing Indwelling Catheter: Not indwelling catheter Urinary Catheter Date of Insertion: 07/04/24 Urinary Catheter Time of Insertion: 02:40 Date Urinary Catheter Removed: 07/05/24 Time Urinary Catheter Discontinued: 17:45 Swain: Cath Placed During This Visit: yes Reason for Continuing Indwelling Catheter: Acute Urinary Retention or Obstruction Urinary Catheter Date of Insertion: 07/05/24 Urinary Catheter Time of Insertion: 17:45 Data 07/06/24 04:55 07/06/24 07:02 Micro: Microbiology 07/04/24 16:00 Gram Stain - Final Pleural Fluid Body Fluid Culture - Preliminary A&P Assessment and plan (1) Acute hypoxic respiratory failure: (2) Aspiration pneumonia: (3) Hypokalemia: (4) Severe protein-calorie malnutrition: (5) Hypothyroidism: (6) Oropharyngeal dysphagia: (7) Acute metabolic encephalopathy: Plan Carlos Masterson is a 89 yo man w/ COPD not on supplemental O2, DM2, HTN, Hypothyroidism, and Liver cirrhosis and BPH, who was brought from [facility] to the ED via EMS on 07/03/2024 with concerns of progresive dyspnea, respiratory distress, hypoxemia, and confusion. In the ED, ayanna was tachypneic and hypoxemic such that he was placed on non- rebreather, then eventually on BiPAP. His Influenza A/B, His CXR showed interstitial and patchy airspace opacities in the R. mid and lower lobe as well as gaseous distension of bowel loops. #Acute COPD Exacerbation: Persistent wheezing. Breathing feels worse subjectively. Will increase corticosteroid frequency to every 6 hours at 40 mg. Monitor for worsening encephalopathy, gastritis, hyperglycemia, hypertension, C. difficile. Reviewed C. difficile, negative. - Continue Duonebs, abx, PPI, Steroids. Monitor for risk of worsening encephalopathy, hypertension, hyperglycemia, gastritis. #Community Acquired Pneumonia vs Aspiration pneumonia: As above, complicated pneumonia. Reviewed vitals, CBC, CMP, UA. - Reviewed BCx. negative to date. - Continue Zosyn. Azithromycin - swallow study today due to oropharyngeal dysphagia. - Reviewed CT chest/abd/pelvis Sigmoid volvulus: Follow-up imaging was obtained by surgery to reassess for obstruction given some ongoing distention. Discussed with surgeon. Pending official read, on preliminary read rectal contrast appears to reach transverse colon, without sign of obstruction. Nidia considered. Suspected chronic possibly acute on chronic ileus with declining functional capacity, acute illness. Surgery adding Dulcolax. Continue to treat underlying problems. Hematuria: Concern for possibly pulling on the catheter. In case observed doing so may nursing let us know to arrange for fret saw operator. Mildly to moderately opaque hematuria without clots. Denies recalling hematuria at home. Has not been noted to pull on Swain, has been calm and cooperative since mental status improved. Requested UA. Monitor for any worsening hematuria. Hold Lovenox. #Acute Metabolic Encephalopathy: So far appears to be improved or resolved. He is awake, answering appropriately. Not oriented to year. States name of the city correctly, thinks he is in a restaurant, but reorients to being in the hospital. Continue To reorient, treat underlying problems. #Acute Hypoxic Resp failure: Resolved respiratory failure, still requiring 4 L nasal cannula oxygen. Continue support and treatment of pneumonia. Reviewed pleural fluid studies, reviewed vitals, CBC, CMP, Discussed with the surgeon and his next of kin. 1.1L effusion drained. With improved mental status.So far remaining afebrile, without leukocytosis. Will reassess condition. As per discussion chest tube was considered, for now deferred given the improvement in risks. Hyponatremia: Will give low rate D5 infusion. Reassess sodium. #Hypokalemia: additional potassium. Reassess chemistry. #At risk of REESE: #DM2 - Reviewed A1c. -Insulin glargine BID w/ low dose SSI w/ meals and high dose SSI at bedtime ordered. Monitor for risk of hypoglycemia. #Hypothyroidism - F/u TSH #Abdominal distension - hx of Liver Cirrhosis - Reviewed CT chest/abd/pelvis - Reassess liver fxn #Macrocytic anemia - Multiple possibilities including vitamin deficiencies vs cirrhosis if he has a liver etiology or due myelodysplastic syndrome - f/u iron studies, b12, folate, tsh, or Peripheral smear #Oropharyngeal Dysphagia - swallow study Underlying dementia #Severe Protein Calorie Malnutrition - Consulted Graphite Pan Drier Tender for assessment and recs. #b/l LE swelling. - Reviewed venous duplex US. No DVT. #Code status: Had been changed to full code transiently per discussion with his next of kin. DVT ppx: Lovenox. GI ppx: PPI Discussed with his next of kin Yen Muniz. PDMP PDMP Reviewed: Not Reviewed Attestations 2 Medical Necessity Statement*: Continue admission for assessment management of pneumonia, possible complicated pneumonia with effusion, COPD exacerbation, acute encephalopathy, ileus. and High MDM includes amount and/or complexity of data reviewed/ordered [ resulted lab(s)/test(s), ordered lab(s)/test(s) and other healthcare professional discussion] and described risk of complication, morbidity or mortality of management as documented Diagnoses Acute hypoxic respiratory failure J96.01 Aspiration pneumonia J69.0 Hypokalemia E87.6 Severe protein-calorie malnutrition E43 Hypothyroidism E03.9 Oropharyngeal dysphagia R13.12 Acute metabolic encephalopathy G93.41
[2024-07-06] MEDS: dextrose 5% 1,000 ML 30 ML IV (10:51)
[2024-07-06] MEDS: lidocaine 1% 5 ML in potassium chloride premix 100 ML 52.5 ML IV (12:24)
--- NOTE | 2024-07-06 13:14 | PC.SOCIAL ---
IMM Updated Updated pt on IMM. No questions voiced. Provided pt a copy. Initialed, dated, & timed a copy & placed in chart.
[2024-07-06] MEDS: methylPREDNISolone sod succ 40 mg/mL INJ IVP ×2 (16:17→20:17)
--- NOTE | 2024-07-06 17:51 | FL_ITS ---
WS: [id number] Modified barium swallow, 07/06/2024 Clinical Data: Oropharyngeal dysphagia Comparison: None. Fluoroscopy time: 1min [id number] # of spot films: 0 Findings: The patient demonstrated premature spillage with minimal oral residue. There was penetration with thick liquids and aspiration with thin liquids. There was a vallecular residue with delayed swallowing but this did clear. FL/FL barium swallow modifd [id number] Impression: 1. Penetration with thick liquids. 2. Aspiration with thin liquids. 3. Vallecular residue with delayed swallowing but eventually clearing occurred. 4. Premature spillage with minimal oral residue.
[2024-07-06] MEDS: sennosides 8.6 mg Tablet 17.2 MG PO (20:17)
[2024-07-06] MEDS: insulin glargine 100 units/1 mL 10 UNIT SUBCUT (20:17)
[2024-07-06 21:12] LABS: Glucose Point of Care 90 mg/dL (70-110)
[2024-07-06 21:13] LABS: Glucose Point of Care 202 mg/dL (70-110)
[2024-07-06] MEDS: insulin lispro 100 unit/1 mL SUBCUT (21:33)
[2024-07-07] VITALS (21 sets, daily range): BP systolic 100–145; BP diastolic 47–81; PULSE 82–105; RESP 17–27; TEMP 36.4–37; O2SAT 88–93
[2024-07-07] MEDS: ipratropium-albuterol 3 mL Neb INHALATION ×7 (00:42→23:00)
[2024-07-07] MEDS: methylPREDNISolone sod succ 40 mg/mL INJ IVP ×4 (02:21→21:20)
[2024-07-07] MEDS: AZITHROMYCIN ADD-Vantage 500 MG in 0.9% NaCl ADD-Vantage 250 ML 250 MG IV (02:21)
[2024-07-07] MEDS: pantoprazole 40 mg SDV IVP (04:28)
[2024-07-07] MEDS: piperacillin-tazobactam 3.375 GM in sodium chloride 0.9% (plus) 50 ML IV ×3 (04:28→21:19)
--- NOTE | 2024-07-07 06:00 | XR_ITS ---
WS: [id number] Portable AP semiupright chest, 07/06/2024 Clinical Data: Hypoxia Comparison: Portable chest, 07/04/2024 Findings: The patchy opacity has increased in the right lung. There is extensive opacity in the left lung with a slight increase. There is right pleural thickening which probably represents pleural effusion. The heart size is probably normal. The aortic arch shows calcification and tortuosity. There is extensive air within the colon. XR/XR chest 1V portable [id number] Impression: 1. Increasing right lung opacity which could represent pneumonia and/or atelect asis. 2. Slight increase in left lung opacity which again may represent atelectasis, effusion and/or pneumonia. 3. Right pleural effusion. 4. Extensive air in the colon.
[2024-07-07 06:05] LABS: Basophils # 0.1 10^3/uL (0.0-0.1); Basophils % 0.3 %; Hematocrit 36.2 % (37-53); Lymphocytes # 0.3 10^3/uL (0.8-4.8); Lymphocytes % 1.6 %; Mean Corpuscular HGB Conc 32.3 g/dL (30-55); Mean Corpuscular Hemoglobin 34.8 pg (27-33); Mean Corpuscular Volume 107.7 fl (82-101); Monocytes # 0.5 10^3/uL (0.2-0.9); Monocytes % 2.8 %; Neutrophils % 90.4 %; Nucleated Red Blood Cells % 0.2 %; Platelet Count 194 10^3/cmm (157-399); Red Blood Count 3.36 10^6/uL (3.85-5.65); Red Cell Distribution Width 15.6 % (12.1-15.1); White Blood Count 18.35 10^3/uL (3.29-11.43)
[2024-07-07 06:32] LABS: Anion Gap 11.2 (5-19); Blood Urea Nitrogen 27 mg/dL (8-23); Calcium 8.3 mg/dL (8.5-10.5); Carbon Dioxide 28 mmol/L (22-29); Chloride 109 mmol/L (98-107); Creatinine Clr Calc Pharmacy 64.7664; Glucose 144 mg/dL (65-115); Osmolality Calculated 306 mOsm/kg (285-295); Potassium 4.2 mmol/L (3.5-5.1); Sodium 144 mmol/L (136-145)
[2024-07-07 06:34] LABS: Glucose Point of Care 148 mg/dL (70-110)
[2024-07-07] MEDS: insulin glargine 100 units/1 mL 20 UNIT SUBCUT (08:52)
[2024-07-07] MEDS: morphine 4 mg/mL SDV 1 mL 2 MG IVP (08:52)
[2024-07-07] MEDS: insulin lispro 100 unit/1 mL SUBCUT ×3 (08:52→17:36)
--- NOTE | 2024-07-07 10:12 | P.PN_ITS ---
Subjective 2 Subjective: No abdominal tenderness Distended but abdomen benign Awake and answering questions Vitals/I&O/Wt Last Vital Signs Temp 98.2 F 07/07/24 07:48 Pulse 91 07/07/24 09:16 Resp 22 H 07/07/24 09:16 BP 132/65 07/07/24 07:48 Pulse Ox 93 07/07/24 09:16 O2 Del Method Oxymask 07/07/24 09:16 O2 Flow Rate 5 07/07/24 09:16 FiO2 40 07/03/24 18:31 07/06/24 07/07/24 07/07/24 22:59 06:59 14:59 Intake Total 50 / 305 300 / 605 50 / 50 Output Total 650 / 650 50 / 50 Balance -600 / -345 300 / -45 0 / 0 Weight last 48 hrs Weight 154 lb Weight 154 lb Physical Exam 2 Narrative: Chest: Unlabored breathing room air. No lymphadenopathy. Heart: Regular rate and rhythm. Abdomen: Soft, nontender, distended. No masses or lymphadenopathy. Urinary Catheter Management: Swain Latex: Cath Placed During This Visit: yes, but has since been removed by the nurse Reason for Continuing Indwelling Catheter: Acute Urinary Retention or Obstruction Urinary Catheter Date of Insertion: 07/04/24 Urinary Catheter Time of Insertion: 02:40 Date Urinary Catheter Removed: 07/05/24 Time Urinary Catheter Discontinued: 17:45 Swain: Cath Placed During This Visit: yes Reason for Continuing Indwelling Catheter: Acute Urinary Retention or Obstruction Urinary Catheter Date of Insertion: 07/05/24 Urinary Catheter Time of Insertion: 17:45 Data 07/07/24 05:44 07/07/24 05:44 Micro: Microbiology 07/04/24 16:00 Gram Stain - Final Pleural Fluid Body Fluid Culture - Preliminary A&P Assessment and plan (1) Ileus: Plan 89-year-old male admitted with multiple medical problems including [place] [address] but abdomen remains benign. Patient denies any abdominal pain. Continue treating medical problems. Will follow. PDMP PDMP Reviewed: Not Reviewed Attestations 2 Medical Necessity Statement*: N/A Coding Level of Care Code 55284 Diagnoses Ileus K56.7
[2024-07-07 10:53] LABS: Glucose Point of Care 148 mg/dL (70-110)
[2024-07-07] MEDS: guaiFENesin-dextromethorphan UDC 10 mL 5 ML PO ×2 (11:50→21:20)
--- NOTE | 2024-07-07 12:19 | PC.NURSE ---
Spoke to patient's DPOA- his niece Debbyimani Walsh who verbally gave this RN and Debby RAMOS consent for the Thoracentesis.
--- NOTE | 2024-07-07 12:42 | XR_ITS ---
WS: [id number] PORTABLE CHEST HISTORY: Post RIGHT thoracentesis. COMPARISON: 07/05/2024 No pneumothorax status post RIGHT thoracentesis. Residual small effusion is still evident. Lung volumes are decreased due to poor inspiration and excessive air in the GI tract limiting expansion of the lungs. Bilateral pulmonary opacifications. Cardiac size: Normal. Mediastinum/Aorta: Mild atherosclerosis aorta. No osseous abnormality seen. XR/XR chest 1V portable [id number] IMPRESSION: 1. No pneumothorax status post RIGHT thoracentesis. 2. Improved aeration of the RIGHT lung compared to study earlier the same day. 3. Continued bilateral pulmonary opacifications likely pneumonia. 4. Decreased pulmonary expansion in part is related to increased air within th e GI tract limiting pulmonary expansion.
--- NOTE | 2024-07-07 14:30 | P.PN_ITS ---
Subjective 2 Subjective: States breathing feels ok today. He is fidgeting with the pulse oximiter cord and hands it to me after folding it. Vitals/I&O/Wt Last Vital Signs Temp 98.6 F 07/07/24 11:43 Pulse 105 H 07/07/24 12:40 Resp 21 H 07/07/24 11:43 BP 100/51 07/07/24 12:40 Pulse Ox 88 L 07/07/24 12:40 O2 Del Method Oxymask 07/07/24 12:40 O2 Flow Rate 5 07/07/24 12:40 FiO2 40 07/03/24 18:31 07/06/24 07/07/24 07/07/24 22:59 06:59 14:59 Intake Total 50 / 305 300 / 605 100 / 100 Output Total 650 / 650 50 / 50 Balance -600 / -345 300 / -45 50 / 50 Weight last 48 hrs Weight 69.853 kg Weight 69.853 kg Physical Exam 2 Const: COMMON NORMALS: alert GENERAL APPEARANCE: cooperative HENMT: COMMON NORMALS: oropharynx normal Neck/C-Spine: COMMON NORMALS: no JVD Resp: COMMON NORMALS: normal respiratory effort and clear to auscultation bilaterally AUSCULTATION: clear to auscultation bilaterally, no wheezes and diminished lung sounds on the right in the lower lung morales Cardio: COMMON NORMALS: no JVD, regular rhythm, S1 normal heart sound present, S2 normal heart sound present and No murmurs present (Cardio) RHYTHM: regular rhythm HEART SOUNDS: S1 normal heart sound present and S2 normal heart sound present GI: COMMON NORMALS: Normal to inspection, nondistended, normoactive bowel sounds present, Soft to palpation and non-tender PALPATION: Yes Soft to palpation : OTHER: Mildly opaque hematuria. No clots. Extremity: COMMON NORMALS: no joint enlargement and no pedal edema Neuro: COMMON NORMALS: moves all extremities SENSORIUM/ORIENTATION: Yes alert Skin: COMMON NORMALS: no rashes or lesions noted GENERAL SKIN EXAM: no rashes or lesions noted Urinary Catheter Management: Swain Latex: Cath Placed During This Visit: yes, but has since been removed by the nurse Reason for Continuing Indwelling Catheter: Acute Urinary Retention or Obstruction Urinary Catheter Date of Insertion: 07/04/24 Urinary Catheter Time of Insertion: 02:40 Date Urinary Catheter Removed: 07/05/24 Time Urinary Catheter Discontinued: 17:45 Swain: Cath Placed During This Visit: yes Reason for Continuing Indwelling Catheter: Acute Urinary Retention or Obstruction Urinary Catheter Date of Insertion: 07/05/24 Urinary Catheter Time of Insertion: 17:45 Data 07/07/24 05:44 07/07/24 05:44 Micro: Microbiology 07/04/24 16:00 Gram Stain - Final Pleural Fluid Body Fluid Culture - Preliminary A&P Assessment and plan (1) Acute hypoxic respiratory failure: (2) Aspiration pneumonia: (3) Hypokalemia: (4) Severe protein-calorie malnutrition: (5) Hypothyroidism: (6) Oropharyngeal dysphagia: (7) Acute metabolic encephalopathy: Plan Carlos Masterson is a 89 yo man w/ COPD not on supplemental O2, DM2, HTN, Hypothyroidism, and Liver cirrhosis and BPH, who was brought from [facility] to the ED via EMS on 07/03/2024 with concerns of progresive dyspnea, respiratory distress, hypoxemia, and confusion. In the ED, ayanna was tachypneic and hypoxemic such that he was placed on non- rebreather, then eventually on BiPAP. His Influenza A/B, His CXR showed interstitial and patchy airspace opacities in the R. mid and lower lobe as well as gaseous distension of bowel loops. #Acute COPD Exacerbation: Today wheezing is improved. Continue Solu-Medrol every 6 hours at 40 mg. Monitor for worsening encephalopathy, gastritis, hyperglycemia, hypertension, C. difficile. Reviewed C. difficile, negative. - Continue Duonebs, abx, PPI, Steroids. Monitor for risk of worsening encephalopathy, hypertension, hyperglycemia, gastritis. #Community Acquired Pneumonia vs Aspiration pneumonia: As above, complicated pneumonia. Reviewed vitals, CBC, CMP. I reviewed pleural fluid culture, without growth so far. - BCx negative to date on review - Continue Zosyn. Azithromycin monitor for risk of QT prolongation, will reassess EKG. - Appreciate speech therapy follow-up per discussion with his next of kin feeding tube would not be recommended and she is in agreement with this assessment. - Reviewed CT chest/abd/pelvis Discussed with nursing and rifle case repairer. Reached out to his niece today but was unable to get in touch with her over the phone. Sigmoid volvulus: Reviewed surgery note. Trial of clear liquids. Bowel regimen. Continue treating other underlying issues. Hematuria: Reviewed urine culture, so far without growth. Concern for possibly pulling on the catheter. In case observed doing so may nursing let us know to arrange for burrito maker. Mildly to moderately opaque hematuria without clots. Denies recalling hematuria at home. Has not been noted to pull on Swain, has been calm and cooperative since mental status improved. Requested UA. Monitor for any worsening hematuria. Hold Lovenox. #Acute Metabolic Encephalopathy: So far appears to be improved or resolved. He is awake, answering appropriately. Not oriented to year. States name of the city correctly, thinks he is in a restaurant, but reorients to being in the hospital. Continue To reorient, treat underlying problems. Urine culture so far without growth. Continue treatment of pneumonia, support hypoxia. #Acute Hypoxic Resp failure: Resolved respiratory failure, still requiring 4 L nasal cannula oxygen. Continue support and treatment of pneumonia. Reviewed pleural fluid studies, reviewed vitals, CBC, CMP, Discussed with the surgeon and his next of kin. 1.1L effusion drained. With improved mental status.So far remaining afebrile, without leukocytosis. Will reassess condition. As per discussion chest tube was considered, for now deferred given the improvement in risks. Hyponatremia: Reviewed sodium, hypernatremia resolved. Hold D5 #Hypokalemia: Has been replaced. Repeat chemistry. #At risk of REESE: #DM2 -Insulin glargine BID w/ low dose SSI w/ meals and high dose SSI at bedtime ordered. Monitor for risk of hypoglycemia. #Hypothyroidism - F/u TSH - hx of Liver Cirrhosis - Reviewed CT chest/abd/pelvis - Reassess liver fxn #Macrocytic anemia - Multiple possibilities including vitamin deficiencies vs cirrhosis if he has a liver etiology or due myelodysplastic syndrome - f/u iron studies, b12, folate, tsh, or Peripheral smear #Oropharyngeal Dysphagia - swallow study Underlying dementia #Severe Protein Calorie Malnutrition - Consulted Mental Retardation Aide for assessment and recs. #b/l LE swelling. - venous duplex US wo DVT. #Code status: AND Goals of care: Further consideration of goals of care if no improvement from pneumonia and respiratory dysfunction with ongoing dysphagia and risk of aspiration. Consideration of hospice discussed in case of lack of improvement. DVT ppx: Lovenox. GI ppx: PPI PDMP PDMP Reviewed: Not Reviewed Attestations 2 Medical Necessity Statement*: Continue admission for assessment management of pneumonia, possible complicated pneumonia with effusion, COPD exacerbation, acute encephalopathy, ileus. and High MDM includes amount and/or complexity of data reviewed/ordered [ previous or external records, resulted lab(s)/test(s), ordered lab(s)/test(s) and other healthcare professional discussion] and described risk of complication, morbidity or mortality of management as documented Diagnoses Acute hypoxic respiratory failure J96.01 Aspiration pneumonia J69.0 Hypokalemia E87.6 Severe protein-calorie malnutrition E43 Hypothyroidism E03.9 Oropharyngeal dysphagia R13.12 Acute metabolic encephalopathy G93.41
--- NOTE | 2024-07-07 14:55 | US_ITS ---
WS: [id number] ULTRASOUND-GUIDED THORACENTESIS, RIGHT HISTORY: pleural effusion, not a good candidate for chest tube Procedure, risks, and complications were explained to the patient. With the patient in an upright position, the skin over the RIGHT posterior thorax was cleansed with ChloraPrep and anesthetized with 1% buffered lidocaine. A 5 [place] Yueh needle is inserted into the pleural fluid without complication. Approximately 1500 cc of clear pleural fluid is removed without difficulty. There is residual pleural fluid remaining but the patient was constantly excessively during the procedure. / thoracentesis [id number] IMPRESSION: 1. RIGHT thoracentesis yielding 1500 cc of fluid. 2. Chest radiograph to follow to evaluate for pneumothorax.
[2024-07-07 16:45] LABS: Glucose Point of Care 142 mg/dL (70-110)
--- NOTE | 2024-07-07 17:05 | ECG_ITS ---
[facility] Test Date: 2024-07-07 Pat Name: Carlos Masterson Department: Room: 253 Gender: Male Nail Kegger: : 1935 Requested By: Dejan Herrera Order Number: [id number] Hussein MD: Cher Leal M.D. Measurements Intervals [place] Rate: 86 P: 137 AR: 147 QRS: 143 QRSD: 138 T: -6 QT: 368 QTc: 441 Interpretive Statements SINUS RHYTHM RIGHT BUNDLE BRANCH BLOCK [120+ ms QRS DURATION, UPRIGHT V1, 40+ ms S IN I/aVL/V4/V5/V6] LEFT POSTERIOR FASCICULAR BLOCK [QRS AXIS > 109, INFERIOR Q] Compared to ECG 07/03/2024 18:09:11 Left posterior fascicular block now present Sinus tachycardia no longer present Electronically Signed On 07-07-2024 18:14:32 CDT by Cher Leal M.D. [email or web address]
[2024-07-07 20:16] LABS: Glucose Point of Care 108 mg/dL (70-110)
[2024-07-07] MEDS: sennosides 8.6 mg Tablet 17.2 MG PO (21:20)
[2024-07-07] MEDS: insulin glargine 100 units/1 mL 10 UNIT SUBCUT (21:20)
[2024-07-07] MEDS: morphine 4 mg/mL SDV 1 mL IVP (23:09)
[2024-07-08] VITALS (18 sets, daily range): BP systolic 111–145; BP diastolic 58–77; PULSE 79–95; RESP 15–20; TEMP 36.4–37.1; O2SAT 90–95; BMI 22.1
--- NOTE | 2024-07-08 01:45 | PC.NURSE ---
pt was staring to tell me that he was seeing people, and these people were talking to him. pt told me he needed to go talk to his brother and go help these people that needed him. pt was getting restless and anxious and pulling at his bipap and pulse ox on his finger. notified. no new orders at this time
[2024-07-08] MEDS: AZITHROMYCIN ADD-Vantage 500 MG in 0.9% NaCl ADD-Vantage 250 ML 250 MG IV (03:25)
[2024-07-08] MEDS: methylPREDNISolone sod succ 40 mg/mL INJ IVP ×3 (03:26→13:49)
[2024-07-08] MEDS: morphine 4 mg/mL SDV 1 mL IVP ×3 (03:26→17:00)
[2024-07-08] MEDS: ipratropium-albuterol 3 mL Neb INHALATION ×5 (03:40→19:49)
[2024-07-08] MEDS: pantoprazole 40 mg SDV IVP (04:40)
[2024-07-08] MEDS: piperacillin-tazobactam 3.375 GM in sodium chloride 0.9% (plus) 50 ML IV ×3 (04:40→21:41)
[2024-07-08 04:44] LABS: Basophils # 0.1 10^3/uL (0.0-0.1); Basophils % 0.3 %; Hematocrit 38.8 % (37-53); Lymphocytes # 0.4 10^3/uL (0.8-4.8); Lymphocytes % 2.2 %; Mean Corpuscular HGB Conc 32.5 g/dL (30-55); Mean Corpuscular Hemoglobin 35.6 pg (27-33); Mean Corpuscular Volume 109.6 fl (82-101); Monocytes # 0.6 10^3/uL (0.2-0.9); Monocytes % 3.1 %; Neutrophils # 17.73 10^3/uL (1.8-7.7); Neutrophils % 89.6 %; Nucleated Red Blood Cells # 0.1 /100WBC; Nucleated Red Blood Cells % 0.3 %; Platelet Count 212 10^3/cmm (157-399); Red Blood Count 3.54 10^6/uL (3.85-5.65); Red Cell Distribution Width 15.7 % (12.1-15.1); White Blood Count 19.77 10^3/uL (3.29-11.43)
[2024-07-08 05:02] LABS: Blood Urea Nitrogen 28 mg/dL (8-23); Calcium 8.2 mg/dL (8.5-10.5); Carbon Dioxide 29 mmol/L (22-29); Chloride 110 mmol/L (98-107); Creatinine Clr Calc Pharmacy 64.7664; Glucose 65 mg/dL (65-115); Osmolality Calculated 302 mOsm/kg (285-295); Sodium 144 mmol/L (136-145)
[2024-07-08 06:42] LABS: Glucose Point of Care 73 mg/dL (70-110)
--- NOTE | 2024-07-08 11:39 | PC.SOCIAL ---
IMM Updated Provided pt a copy of IMM. No questions voiced. Initialed, dated, & timed copy in chart.
[2024-07-08 12:00] LABS: Glucose Point of Care 91 mg/dL (70-110)
--- NOTE | 2024-07-08 12:55 | PC.SLP ---
GAS ATTENDANT attempted. Patient not alert
--- NOTE | 2024-07-08 14:20 | P.PN_ITS ---
Subjective 2 Subjective: Had BM yesterday confirmed with nursing Abdomen benign No changes Vitals/I&O/Wt Last Vital Signs Temp 97.9 F 07/08/24 12:50 Pulse 89 07/08/24 12:50 Resp 18 07/08/24 12:50 BP 139/67 07/08/24 12:50 Pulse Ox 95 07/08/24 12:50 O2 Del Method Nasal Cannula 07/08/24 12:50 O2 Flow Rate 5 07/08/24 11:35 FiO2 40 07/08/24 03:40 07/07/24 07/08/24 07/08/24 22:59 06:59 14:59 Intake Total 110 / 210 542.917 / 752.917 527.083 / 527.083 Balance 110 / 160 542.917 / 702.917 527.083 / 527.083 Weight last 48 hrs Weight 154 lb Weight 154 lb Physical Exam 2 Narrative: RRR 4L NC Abdomen soft, benign Urinary Catheter Management: Swain Latex: Cath Placed During This Visit: yes, but has since been removed by the nurse Reason for Continuing Indwelling Catheter: Acute Urinary Retention or Obstruction Urinary Catheter Date of Insertion: 07/04/24 Urinary Catheter Time of Insertion: 02:40 Date Urinary Catheter Removed: 07/05/24 Time Urinary Catheter Discontinued: 17:45 Swain: Cath Placed During This Visit: yes Reason for Continuing Indwelling Catheter: Acute Urinary Retention or Obstruction Urinary Catheter Date of Insertion: 07/05/24 Urinary Catheter Time of Insertion: 17:45 Data 07/08/24 04:26 07/08/24 04:26 Micro: Microbiology 07/05/24 18:20 Urine Culture - Final Urine,Clean Catch 07/04/24 16:00 Gram Stain - Final Pleural Fluid Body Fluid Culture - Final A&P Assessment and plan (1) Ileus: Plan 89 yo male admitted with pneumonia, ileus. Had BM yesterday. No surgical intervention indicated. PDMP PDMP Reviewed: Not Reviewed Attestations 2 Medical Necessity Statement*: NA Coding Level of Care Code Acute Code for Chg Fwd Diagnoses Ileus K56.7
--- NOTE | 2024-07-08 16:14 | PM.PN ---
Subjective Subjective: Confused. When asked where he is stating 2033. Vitals/I&O/Wt Last Vital Signs Temp 97.9 F 07/08/24 12:50 Pulse 79 07/08/24 16:03 Resp 16 07/08/24 16:00 BP 139/67 07/08/24 12:50 Pulse Ox 92 07/08/24 16:00 O2 Del Method Nasal Cannula 07/08/24 16:00 O2 Flow Rate 5 07/08/24 16:00 FiO2 40 07/08/24 03:40 07/08/24 07/08/24 07/08/24 06:59 14:59 22:59 Intake Total 542.917 / 752.917 527.083 / 527.083 Balance 542.917 / 702.917 527.083 / 527.083 Weight last 48 hrs Weight 69.853 kg Weight 69.853 kg Physical Exam Const: GENERAL APPEARANCE: cooperative ORIENTATION/CONSCIOUSNESS: Yes awake and Yes confused HENMT: COMMON NORMALS: oropharynx normal Neck/C-Spine: COMMON NORMALS: no JVD Resp: COMMON NORMALS: normal respiratory effort and clear to auscultation bilaterally AUSCULTATION: clear to auscultation bilaterally, no wheezes and diminished lung sounds on the right in the lower lung morales Cardio: COMMON NORMALS: no JVD, regular rhythm, S1 normal heart sound present, S2 normal heart sound present and No murmurs present (Cardio) RHYTHM: regular rhythm HEART SOUNDS: S1 normal heart sound present and S2 normal heart sound present GI: COMMON NORMALS: Normal to inspection, nondistended, normoactive bowel sounds present, Soft to palpation and non-tender PALPATION: Yes Soft to palpation Extremity: COMMON NORMALS: no joint enlargement and no pedal edema Neuro: COMMON NORMALS: moves all extremities Skin: COMMON NORMALS: no rashes or lesions noted GENERAL SKIN EXAM: no rashes or lesions noted Urinary Catheter Management: Swain Latex: Cath Placed During This Visit: yes, but has since been removed by the nurse Reason for Continuing Indwelling Catheter: Acute Urinary Retention or Obstruction Urinary Catheter Date of Insertion: 07/04/24 Urinary Catheter Time of Insertion: 02:40 Date Urinary Catheter Removed: 07/05/24 Time Urinary Catheter Discontinued: 17:45 Swain: Cath Placed During This Visit: yes Reason for Continuing Indwelling Catheter: Acute Urinary Retention or Obstruction Urinary Catheter Date of Insertion: 07/05/24 Urinary Catheter Time of Insertion: 17:45 Data 07/08/24 04:26 07/08/24 04:26 Micro: Microbiology 07/05/24 18:20 Urine Culture - Final Urine,Clean Catch 07/04/24 16:00 Gram Stain - Final Pleural Fluid Body Fluid Culture - Final A&P Assessment and plan (1) Acute hypoxic respiratory failure: (2) Aspiration pneumonia: (3) Hypokalemia: (4) Severe protein-calorie malnutrition: (5) Hypothyroidism: (6) Oropharyngeal dysphagia: (7) Acute metabolic encephalopathy: Plan Carlos Masterson is a 89 yo man w/ COPD not on supplemental O2, DM2, HTN, Hypothyroidism, and Liver cirrhosis and BPH, who was brought from [facility] to the ED via EMS on 07/03/2024 with concerns of progresive dyspnea, respiratory distress, hypoxemia, and confusion. In the ED, ayanna was tachypneic and hypoxemic such that he was placed on non-rebreather, then eventually on BiPAP. His Influenza A/B, His CXR showed interstitial and patchy airspace opacities in the R. mid and lower lobe as well as gaseous distension of bowel loops. #Community Acquired Pneumonia vs Aspiration pneumonia: Without improvement, worsening pneumonia, 5 L oxygen requirement, has been requiring BiPAP at night but has been pulling it off, on review of CBC leukocytosis 19.77. Status post additional thoracentesis 1.5 L yesterday. Continue risk of aspiration. Confused with acute metabolic encephalopathy secondary to pneumonia and hypoxia. Discussed with his next of kin Yen Muniz. Discussed with nursing and caseworker protective services. This prescription given his lack of improvement, overall declining condition, total assist care, he would have felt appropriate for comfort care, with next of kin deciding to proceed to arrangements for comfort measures at [facility] at this point. Preparations for discharge tomorrow to [facility] with comfort/hospice. - Reviewed BCx negative to date - Continue Zosyn. Azithromycin monitor for risk of QT prolongation, will reassess EKG. - Appreciate speech therapy follow-up per discussion with his next of kin feeding tube would not be recommended and she is in agreement with this assessment. #Acute COPD Exacerbation: wheezing is improved. Decreased Solu-Medrol to 20 mg every 8 hours. Monitor for worsening encephalopathy, gastritis, hyperglycemia, hypertension, C. difficile. Reviewed C. difficile, negative. - Continue Duonebs, abx, PPI Sigmoid volvulus: Reviewed surgery note. Discussed lack of progress with regards to pneumonia. Respiratory failure with hypoxia. Consideration of transition to comfort measures. Trial of clear liquids. Bowel regimen. Continue treating other underlying issues. Hematuria: Reviewed urine culture, without growth. Concern for possibly pulling on the catheter. In case observed doing so may nursing let us know to arrange for electrical and instrument technician. Mildly to moderately opaque hematuria without clots. Hold Lovenox. #Acute Metabolic Encephalopathy: Worsened again. Without improvement of pneumonia. Respiratory failure. Bronchospasm has improved. Decrease steroids. Urine culture without growth. #Acute Hypoxic Resp failure: unimproving as above. Hyponatremia: Reviewed sodium, hypernatremia resolved. Hold D5 #Hypokalemia: Has been replaced. Repeat chemistry. #At risk of REESE: #DM2 -Insulin glargine BID w/ low dose SSI w/ meals and high dose SSI at bedtime ordered. Monitor for risk of hypoglycemia. #Hypothyroidism - Normal TSH # hx of Liver Cirrhosis #Macrocytic anemia - Multiple possibilities including vitamin deficiencies vs cirrhosis if he has a liver etiology or due myelodysplastic syndrome #Oropharyngeal Dysphagia Underlying dementia #Severe Protein Calorie Malnutrition #b/l LE swelling. - venous duplex US wo DVT. #Code status: AND Goals of care: Further consideration of goals of care if no improvement from pneumonia and respiratory dysfunction with ongoing dysphagia and risk of aspiration. Consideration of hospice discussed in case of lack of improvement. DVT ppx: Lovenox. GI ppx: PPI PDMP PDMP Reviewed: Not Reviewed Attestations Medical Necessity Statement*: Continue assessment management with respiratory failure, pneumonia, dysphagia, COPD exacerbation, sigmoid volvulus, hematuria, goals of care and post discharge planning and arrangements. Diagnoses Acute hypoxic respiratory failure J96.01 Aspiration pneumonia J69.0 Hypokalemia E87.6 Severe protein-calorie malnutrition E43 Hypothyroidism E03.9 Oropharyngeal dysphagia R13.12 Acute metabolic encephalopathy G93.41
[2024-07-08 16:53] LABS: Glucose Point of Care 85 mg/dL (70-110)
[2024-07-08] MEDS: methylPREDNISolone sod succ 40 mg/mL INJ 20 MG IVP (21:43)
[2024-07-08 21:51] LABS: Glucose Point of Care 123 mg/dL (70-110)
[2024-07-09] VITALS (12 sets, daily range): BP systolic 144–179; BP diastolic 81–82; PULSE 79–99; RESP 15–119; TEMP 36.4–37.1; O2SAT 90–94; BMI 22.1
[2024-07-09] MEDS: ipratropium-albuterol 3 mL Neb INHALATION ×4 (00:02→11:56)
[2024-07-09] MEDS: morphine 4 mg/mL SDV 1 mL IVP ×3 (02:14→13:00)
[2024-07-09] MEDS: AZITHROMYCIN ADD-Vantage 500 MG in 0.9% NaCl ADD-Vantage 250 ML 250 MG IV (02:49)
[2024-07-09] MEDS: piperacillin-tazobactam 3.375 GM in sodium chloride 0.9% (plus) 50 ML IV ×2 (05:07→13:01)
[2024-07-09] MEDS: pantoprazole 40 mg SDV IVP (05:07)
[2024-07-09] MEDS: methylPREDNISolone sod succ 40 mg/mL INJ 20 MG IVP ×2 (05:07→13:01)
[2024-07-09 06:17] LABS: Glucose Point of Care 141 mg/dL (70-110)
--- NOTE | 2024-07-09 11:44 | PC.CHAP ---
Pastoral Care Encounter/Spiritual Assessment Type of Contact [] Declined waste picker visit [] Patient/Family/Request visit [] Outpatient visit [] Follow-up visit [] Physician referral [] Code/Alert [x] Routine visit [] Staff referral [] Actively dying [x] Patient sleeping [] Family support [] [] Out of room [] Palliative care [] [] Receiving care in room [] Pre-surgical visit [] Trauma [] Long length of stay [] ICU visit [] Other: Relational/Emotional Strength [] Patient feels connected with others/family/visitors/staff [] Distress [] Loneliness/isolation [] Abandonment Spirituality of Patient [] Person of [place] [] Attends Christianity of their [place] [] Believes in Prayer [] Reads Bible or Druze materials [] There are Spiritual issues to be addressed Rod Drawer Interventions [] Prayer [] Active listening [] Non-anxious presence [] Spiritual/emotional support [] Crisis/trauma care [] Spiritual counseling [] Bereavement support [] Provided bereavement packet [] Provided Bible/devotional materials [] Provided toy/stuffed animal, coloring book to patient or family member [] Provided Communion [] Anointing/[place] [] Salvation [] Completed spiritual assessment [] Other: Impact on Illness or Injury [] Angry [] Fearful [] Anxious [] Often cries [] Exhaustion [] Unable to work [] Unable to attend pentecostalism [] Unable to walk/stand [] Unable to read [] Unable to drive [] Unable to eat/drink [] Unable to sleep [] Unable to be with family [] Patient intubated [] Other: Summary Time spent with patient
--- NOTE | 2024-07-09 13:16 | PM.DCS ---
Discharge Providers Date of Admission: 07/03/24 20:30 Date of Discharge: July 09, 2024 Attending Provider at Admission: Amanda Wilson MD Attending Provider at Discharge: Galen Ortega MD Consults: Miguel Hamm MD General Surgery Primary Care Provider: Omkar Perez DO Diagnoses at Discharge Discharge Diagnosis (1) Acute hypoxic respiratory failure: Status: Acute (2) Aspiration pneumonia: Status: Acute (3) Hypokalemia: Status: Acute (4) Severe protein-calorie malnutrition: Status: Acute (5) Hypothyroidism: Status: Acute (6) Oropharyngeal dysphagia: Status: Acute (7) Acute metabolic encephalopathy: Status: Acute Reason for Visit Reason for Visit: sob Brief History: Carlos Masterson is a 89 yo man w/ COPD not on supplemental O2, DM2, HTN, Hypothyroidism, and Liver cirrhosis and BPH, who was brought from [facility] to the ED via EMS on 07/03/2024 with concerns of progresive dyspnea, respiratory distress, hypoxemia, and confusion. When I saw the patient, he was on BiPAP and confused, to hx was obtained [facility]. I spoke with Qi the nurse at the skilled nursing, who tells me that starting around 5am on 07/02/2024, the patient was given Tylenol. Shortly afterwards, he started coughing. He is on a pureed diet a the skilled nursing. By Thursday evening, he was coughing and had a hoarse voice. His O2 sats were in the 80s. Neb treatment was administered at 20:27, and it brought his O2 sat to 91%. About an hr later, it was 83% on RA, so he was placed on 2.5L NC, which improved him to 93%. He was given cough syrup, which helped for the rest of the night and his O2 sat remained at 93% for the rest of the ship. He got nebulizer treatment at 4am this morning. During the day, his speech became unintelligible and he was unable to follow commands. [place], At baseline, he normally uses his wheelchair, and with his feet and grabbing the side rails, he is able to propel himself along from unit to unit, but today, he was unable to do that. A stat CXR was done and based on the results along w/ his clinical presentation, including labored breathing, he was sent to the ED. In the ED, ayanna was tachypneic and hypoxemic such that he was placed on non-rebreather, then eventually on BiPAP. His Influenza A/B, His CXR showed interstitial and patchy airspace opacities in the R. mid and lower lobe as well as gaseous distension of bowel loops. Hospital Course Hospital Course 89-year-old male with diabetes, COPD, liver cirrhosis, BPH, hypothyroidism, severe protein calorie nutrition came in with aspiration pneumonia related to sigmoid volvulus and dysphagia. He was treated with IV fluids, IV antibiotics and supportive care including oxygen and BiPAP he had several procedure but has not been improving. He has had almost daily worsening. Patient had an emergent colonoscopy on 07/04/2024 for colonic decompression. He also had thoracentesis on 07/04/2024 and 07/07/2024. Modified barium swallow on 07/06/2024 showed oropharyngeal dysphagia and aspiration. Chest x-ray shows bilateral pneumonia and dilated loops of bowel. Patient was not improving and Dr. Mccord had discussion with patient's niece Yen Walsh who is the power of patent prosecution attorney and plan was made for comfort care. I confirmed with her that plan today and did discontinue all noncomfort care medications today. Patient will discharge to the skilled nursing on comfort care Physical Exam Urinary Catheter Management: Swain Latex: Cath Placed During This Visit: yes, but has since been removed by the nurse Reason for Continuing Indwelling Catheter: Acute Urinary Retention or Obstruction Urinary Catheter Date of Insertion: 07/04/24 Urinary Catheter Time of Insertion: 02:40 Date Urinary Catheter Removed: 07/05/24 Time Urinary Catheter Discontinued: 17:45 Swain: Cath Placed During This Visit: yes, but has since been removed by the nurse Reason for Continuing Indwelling Catheter: Decision to DC Catheter Urinary Catheter Date of Insertion: 07/05/24 Urinary Catheter Time of Insertion: 17:45 Date Urinary Catheter Removed: 07/08/24 Time Urinary Catheter Discontinued: 17:20 Discharge Data Studies Completed and Pending Completed Studies During Hospitalization Category Date Time Status CT abdomen pelvis w con* [id number] Routine Cat Scan 07/06/24 07:[address] chest abdomen pelvis [CT chest abdpel w/*[id number] Cat Scan 07/03/24 23:00 Completed ] Routine CXRP [XR chest 1V portable [id number]] Stat Exams 07/04/24 15:54 Completed FL barium swallow modifd [id number] Routine Exams 07/06/24 17:51 Completed XR chest 1V portable [id number] Routine Exams 07/07/24 06:00 Completed XR chest 1V portable [id number] Stat Exams 07/03/24 17:40 Completed XR chest 1V portable [id number] Stat Exams 07/07/24 12:42 Completed US thoracentesis 68857 Routine Ultrasound 07/04/24 10:54 Completed US thoracentesis [id number] Routine Ultrasound 07/07/24 14:55 Completed US venous duplex lower extremity bilat [CV venous Ultrasound 07/04/24 00:07 [place] [id number]] Routine Radiology Impressions Chest/Abdomen/Pelvis CT 07/03/24 23:00 IMPRESSION: Large right pleural effusion without definite loculation. There is extensive bilateral airspace disease compatible with pneumonia. IMPRESSION: 1. 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 No current findings of bowel ischemia or infarction. 2. There is a sliver of gas in the left lateral abdominal wall musculature, etiology and significance unclear. No other ectopic gas is seen. COMMENTS: Consistent with the [employer]'s Incidental Findings Committee white paper (J Am Tran Radiol 2018): Any incidental renal lesion less than 1 cm or classified as too small to characterize, or any incidental cystic renal lesion characterized as simple-appearing, is likely benign. No follow-up imaging is recommended for these lesions per consensus recommendations based on imaging criteria. ADDENDUM: 07/04/24 0051 THIS REPORT CONTAINS FINDINGS THAT MAY BE CRITICAL TO PATIENT CARE. The findings were verbally communicated via telephone conference with AMANDA WILSON at 12:49 AM CDT on 07/04/2024. The findings were acknowledged and understood. Abdomen/Pelvis CT 07/06/24 07:16 IMPRESSION: 1. Gaseous distension of the colon is again noted with rectal contrast extending to the level of the distal transverse colon. There is focal luminal narrowing of the sigmoid colon in the right flank as described above. 2. There is moderate irregular thickening of the rectal wall on decompression of the colon following removal of the rectal balloon. This finding could represent chronic proctitis although a circumferential mural rectal mass can not be entirely excluded. 3. Stranding and hazy opacity seen in the left paracolic gutter, pelvic fat and fascia and sigmoid mesenteric fat could represent mild inflammatory changes or edema. 4. Large right pleural effusion again noted. 5. Right lower lobe atelectasis and collapse and bilateral basilar opacities again seen, findings could represent bilateral basilar pneumonia. Modified Barium Swallow 07/06/24 17:51 Impression: 1. Penetration with thick liquids. 2. Aspiration with thin liquids. 3. Vallecular residue with delayed swallowing but eventually clearing occurred. 4. Premature spillage with minimal oral residue. Chest X-Ray 07/07/24 12:42 IMPRESSION: 1. No pneumothorax status post RIGHT thoracentesis. 2. Improved aeration of the RIGHT lung compared to study earlier the same day. 3. Continued bilateral pulmonary opacifications likely pneumonia. 4. Decreased pulmonary expansion in part is related to increased air within the GI tract limiting pulmonary expansion. Thoracentesis Ultrasound 07/07/24 14:55 IMPRESSION: 1. RIGHT thoracentesis yielding 1500 cc of fluid. 2. Chest radiograph to follow to evaluate for pneumothorax. Laboratory Results WBC 19.77 10^3/uL (3.29-11.43) H 07/08/24 04:26 RBC 3.54 10^6/uL (3.85-5.65) L 07/08/24 04:26 Hgb 12.60 g/dL (11.27-16.99) 07/08/24 04:26 Hct 38.8 % (37-53) 07/08/24 04: MCV 109.6 fl (82-101) H 07/08/24 04:26 MCH 35.6 pg (27-33) H 07/08/24 04:26 MCHC 32.5 g/dL (30-55) 07/08/24 04:26 RDW 15.7 % (12.1-15.1) H 07/08/24 04:26 Plt Count 212 10^3/cmm (157-399) 07/08/24 04:26 MPV 10.0 fL (7.4-10.4) 07/08/24 04: Neut % (Auto) 89.6 % 07/08/24 04:26 Lymph % (Auto) 2.2 % 07/08/24 04:26 [place] % (Auto) 3.1 % 07/08/24 04: Eos % (Auto) 0.0 % 07/08/24 04: Baso % (Auto) 0.3 % 07/08/24 04: Neut # (Auto) 17.73 10^3/uL (1.8-7.7) H 07/08/24 04: Lymph # (Auto) 0.4 10^3/uL (0.8-4.8) L 07/08/24 04: [place] # (Auto) 0.6 10^3/uL (0.2-0.9) 07/08/24 04: Eos # (Auto) 0.0 10^3/uL (0.0-0.8) 07/08/24 04: Baso # (Auto) 0.1 10^3/uL (0.0-0.1) 07/08/24 04: Nucleated RBC % (auto) 0.3 % 07/08/24 04: Nucleated RBCs # 0.1 /100WBC 07/08/24 04:26 Peripher Smr Path Cons Sent for review 07/04/24 01:19 PT 15.10 SECONDS (12.1-14.9) H 07/03/24 18:08 INR 1.11 (0.8-1.2) 07/03/24 18:08 APTT 30.1 SECONDS (23.9-36.7) 07/03/24 18:08 Specimen Type Arterial 07/03/24 18:14 Sample Site Radial, right 07/03/24 18:14 ABG pH 7.38 (7.35-7.45) 07/03/24 18:14 ABG pCO2 42.1 mmHg (35-45) 07/03/24 18:14 ABG pO2 83.0 mmHg (80.0-100.0) 07/03/24 18:14 ABG HCO3 24.6 mmol/L (22-26) 07/03/24 18:14 ABG Base Excess -0.7 mmol/L (-2.0-2.0) 07/03/24 18:14 Fer Test Pos 07/03/24 18:14 Hematocrit 35.8 % (42-52) L 07/03/24 18:14 O2 Delivery Device Nrb 07/03/24 18:14 O2 Liters/Min 15.0 % 07/03/24 18:14 [employer] Installer ID Lizette 07/03/24 18:14 Sodium 144 mmol/L (136-145) 07/08/24 04:26 Potassium 4.0 mmol/L (3.5-5.1) 07/08/24 04:26 Chloride 110 mmol/L (98-107) H 07/08/24 04:26 Carbon Dioxide 29 mmol/L (22-29) 07/08/24 04:26 Anion Gap 9.0 (5-19) 07/08/24 04:26 BUN 28 mg/dL (8-23) H 07/08/24 04:26 Creatinine 0.5 mg/dL (0.7-1.2) L 07/08/24 04:26 GFR Calculation Not Reportable 07/08/24 04:26 Glucose 65 mg/dL (65-115) 07/08/24 04:26 POC Glucose 141 mg/dL (70-110) H 07/09/24 06:14 Estimat Average Glucose 105 07/03/24 18:08 Hemoglobin A1c 5.3 % (4.0-6.0) 07/03/24 18:08 Calculated Osmolality 302 mOsm/kg (285-295) H 07/08/24 04:26 Lactic Acid 1.4 mmol/L (0.5-2.2) 07/04/24 01:19 Lactic Acid (Sepsis) 3.1 mmol/L (0.5-2.2) H 07/03/24 21:02 Calcium 8.2 mg/dL (8.5-10.5) L 07/08/24 04:26 Phosphorus 1.5 mg/dL (2.5-4.5) L 07/06/24 07:02 Magnesium 2.4 mg/dL (1.7-2.3) H 07/06/24 07:02 Total Bilirubin 0.6 mg/dL (0.15-1.2) 07/06/24 07:02 AST 15 U/L (0-40) 07/06/24 07:02 ALT 17 U/L (0-41) 07/06/24 07:02 Alkaline Phosphatase 95 U/L (40-130) 07/06/24 07:02 NT-Pro-B Natriuret Pep 1897 pg/mL (0-450) H 07/03/24 18:08 Total Protein 6.0 g/dL (6.6-8.7) L 07/06/24 07:02 Albumin 2.7 g/dL (3.5-5.2) L 07/06/24 07:02 Globulin 3.3 g/dL (1.3-4.6) 07/06/24 07:02 TSH 0.45 uIU/mL (0.27-4.20) 07/04/24 01:19 Urine Color Red (Yellow) A 07/05/24 18:20 Urine Appearance Turbid (CLEAR) A 07/05/24 18:20 Urine pH 5.5 (5-7) 07/05/24 18:20 Ur Specific [place] 1.023 (1.005-1.030) 07/05/24 18:20 Urine Protein 3+ (Negative) A 07/05/24 18:20 Urine Glucose (UA) Negative (Normal) 07/05/24 18:20 Urine Ketones Negative (Negative) 07/05/24 18:20 Urine Blood 3+ (Negative) A 07/05/24 18:20 Urine Nitrate Negative (Negative) 07/05/24 18:20 Urine Bilirubin 2+ (Negative) H 07/05/24 18:20 Urine Urobilinogen 1.0 mg/dL (Negative) 07/05/24 18:20 Ur Leukocyte Esterase 2+ (Negative) A 07/05/24 18:20 Urine RBC >100 /hpf (0-2) H 07/05/24 18:20 Urine WBC 21-50 /hpf (0-5) H 07/05/24 18:20 Ur Squamous Epith Cells 0-5 /hpf (0-5) 07/05/24 18:20 Amorphous Sediment 2+ /hpf 07/05/24 18:20 Urine Bacteria 1+ /hpf (NONE) H 07/05/24 18:20 Hyaline Casts 1.59 /lpf 07/05/24 18:20 Fld Crystal Laterality Right lower pleural 07/04/24 16:00 Pleural Color Yellow (Pale Yellow) H 07/04/24 16:00 Pleural Appearance Cloudy (CLEAR) 07/04/24 16:00 Pleural pH 7.00 (6.5-7.5) 07/04/24 16:00 Pleural WBC 106.000 /uL (0-1000) 07/04/24 16:00 Pleural RBC 0.000 10^3/uL 07/04/24 16:00 Pleural Mononuc # Auto 0.040 10^3/uL 07/04/24 16:00 Pleural Polynuclear % 62 % 07/04/24 16:00 Pleural Polynuclear # 0.066 10^3/uL 07/04/24 16:00 Pleural Mononuclear % 38 % 07/04/24 16:00 Pleural Other Cells Rt Not Reportable 07/04/24 16:00 Pleural Total Protein 2.7 g/dL 07/04/24 16:00 Pleural Albumin 1.8 g/dL 07/04/24 16:00 Pleural LDH 119 U/L 07/04/24 16:00 Stool Rotavirus A PCR Not detected (NOT DETECTED) 07/04/24 02:37 Stl Salmonella enterica PCR Not detected (NOT DETECTED) 07/04/24 02:37 Stool Shigella PCR Not detected (NOT DETECTED) 07/04/24 02:37 St Y.enterocolitica PCR Not detected (NOT DETECTED) 07/04/24 02:37 Stl Vibrio cholerae PCR Not detected (NOT DETECTED) 07/04/24 02:37 Stl Norovirus GI/GII PCR Not detected (NOT DETECTED) 07/04/24 02:37 Campylobacter (PCR) Not detected (NOT DETECTED) 07/04/24 02:37 C. difficile (PCR) Negative (Negative) 07/04/24 02:37 Influenza A (PCR) Negative (Negative) 07/03/24 18:40 Influenza Type B (PCR) Negative (Negative) 07/03/24 18:40 RSV (PCR) Negative (Negative) 07/03/24 18:40 SARS-CoV-2 (PCR) Negative (Negative) 07/03/24 18:40 Shiga Toxin 1 Not detected (NOT DETECTED) 07/04/24 02:37 Shiga Toxin 2 Not detected (NOT DETECTED) 07/04/24 02:37 Pathology Message Yes 07/04/24 16:00 Vitals Last Vital Signs Temp 97.6 F 07/09/24 11:20 Pulse 96 07/09/24 11:57 Resp 16 07/09/24 13:00 BP 156/81 07/09/24 11:20 Pulse Ox 92 07/09/24 11:57 O2 Del Method Oxymask 07/09/24 11:57 O2 Flow Rate 12 07/09/24 11:57 FiO2 50 07/09/24 08:00 Discharge Plan Discharge Patient Disposition: Hospice - Medical Facility Condition: Stable Prescriptions: New morphine 10 mg/5 mL solution 5 mg PO Q1H PRN (Reason: pain) Qty: 100 0RF scopolamine base 1 mg over 3 days patch 3 day 1 patch transdermal Q3D PRN (Reason: excessive salivation) Qty: 4 0RF Discontinued prednisone 20 mg Tablet 40 mg PO QAM potassium chloride [K-Tab] 10 mEq Tablet Extended Release 10 meq PO QAM aspirin [Aspir-81] 81 mg Tablet,Delayed Release (Dr/Ec) 81 mg PO QAM spironolactone 25 mg Tablet 12.5 mg PO QAM levothyroxine [Synthroid] 100 mcg Tablet 100 mcg PO QAM magnesium hydroxide [Milk of Magnesia] 400 mg/5 mL Suspension 30 ml PO DAILY PRN (Reason: Constipation) pantoprazole [Protonix] 40 mg Tablet,Delayed Release (Dr/Ec) 40 mg PO DAILY furosemide [Lasix] 20 mg Tablet 20 mg PO QAM finasteride 5 mg Tablet 5 mg PO QAM Ocuvite Adult 50 Plus 250 mg (90 mg-160 mg) Capsule 1 cap PO QAM No Action sennosides [Senokot] 8.6 mg Tablet 8.6 mg PO BEDTIME acetaminophen 325 mg Tablet 650 mg PO TID albuterol sulfate 2.5 mg /3 mL (0.083 %) Solution For Nebulization 2.5 mg INHALATION Q4H PRN (Reason: Shortness Of Breath) tamsulosin [Flomax] 0.4 mg Capsule 0.4 mg PO BEDTIME bisacodyl [Dulcolax (bisacodyl)] 10 mg Suppository 10 mg FL DAILY PRN (Reason: Constipation) docusate sodium [Colace] 100 mg Capsule 100 mg PO BID polyethylene glycol 3350 [Miralax] 17 gram/dose Powder 17 g PO DAILY naphazoline-pheniramine 0.025-0.3 % Drops 1 drp ophthalmic (eye) QID PRN (Reason: itching eyes) carboxymethylcellulose sodium [Refresh] 1 % Drops, Liquid Gel 1 drp OPHTHALMIC (EYE) BID Robitussin Cough-Chest Horacio DM 5-50 mg/5 mL Liquid 10 ml PO Q4H PRN (Reason: cough/congestion) Discharge Orders: Discharge Order (Routine); Ordered 07/09/24 Ordered By: Galen Ortega Referrals: Omkar Perez DO [Primary Care Provider, Internal Medicine] Patient Instructions: GI Post Discharge Instructions w/ Anesthesia, Opioid Safety Activity Restrictions/Additional Instructions: Family request to continue 1-2 L nasal cannula oxygen for comfort if possible. Discharge Attestations Time Spent in Discharge Care*: greater than 30 min Quality Metrics Clinical Quality Measures [ No reported AMI, CVA or VTE this stay] Coding Level of Care Code 87276 Diagnoses Acute hypoxic respiratory failure J96.01 Aspiration pneumonia J69.0 Hypokalemia E87.6 Severe protein-calorie malnutrition E43 Hypothyroidism E03.9 Oropharyngeal dysphagia R13.12 Acute metabolic encephalopathy G93.41 Time Spent (min) 40
--- NOTE | 2024-07-09 14:48 | PC.NURSE ---
Report called to Mala at [facility]. All questions answered. EMS called to transport patient.
== END 2024-07-09 14:51 | disposition skilled nursing facility (03) | DRG 344 ==
LOC: ER 19:59 → ER IP 21:44 → MEDSURG 07-04 11:00
PROVIDERS: Emergency Medicine; Internal Medicine; Surgery; Admitting Provider Internal Medicine; Emergency Provider Emergency Medicine; PCP Internal Medicine; Visit Provider Internal Medicine
PROC: 0DJD8ZZ Inspection of Lower Intestinal Tract, Via Natural or Artificial Opening Endoscopic (ICD-10-PCS; CPT 45378; principal; 2024-07-04 03:30)
DX: K56.2 Volvulus (principal); E43 Unspecified severe protein-calorie malnutrition; J69.0 Pneumonitis due to inhalation of food and vomit; J96.01 Acute respiratory failure with hypoxia; G93.41 Metabolic encephalopathy; J44.1 Chronic obstructive pulmonary disease with (acute) exacerbation; E87.20 Acidosis, unspecified; E87.1 Hypo-osmolality and hyponatremia; J90 Pleural effusion, not elsewhere classified; K56.7 Ileus, unspecified; E87.6 Hypokalemia; Z68.22 Body mass index [BMI] 22.0-22.9, adult; E03.9 Hypothyroidism, unspecified; R13.12 Dysphagia, oropharyngeal phase; E11.9 Type 2 diabetes mellitus without complications; I10 Essential (primary) hypertension; K74.60 Unspecified cirrhosis of liver; N40.0 Benign prostatic hyperplasia without lower urinary tract symptoms; Z79.82 Long term (current) use of aspirin; R31.9 Hematuria, unspecified; K63.5 Polyp of colon; I45.10 Unspecified right bundle-branch block; R00.0 Tachycardia, unspecified; F03.C0 Unspecified dementia, severe, without behavioral disturbance, psychotic disturbance, mood disturbance, and anxiety; D53.9 Nutritional anemia, unspecified
CPT/HCPCS: 12345; 32555; 36415; 36416; 36600; 51702; 71045; 71260; 74177; 74230; 80048; 80053; 80503; 81001; 82042; 82803; 82962; 83036; 83605; 83615; 83735; 83880; 83986; 84100; 84157; 84443; 85025; 85610; 85730; 87040; 87070; 87075; 87086; 87205; 87493; 87506; 87637; 89050; 92507; 92523; 92526; 92610; 92611; 93005; 93970; 94640; 94660; 94664; 96365; 96366; 96367; 96372; 96375; 99285; 99291; J0330; J0456; J1650; J1815; J2270; J2405; J2470; J2543; J2704; J2919; J3010; J3480; J3490; J7030; J7050; J7070; J9999